=== PATIENT | female | born 1960 | race Caucasian/White ===

== ENCOUNTER → 2017-08-30 | Outpatient (CLI) | payer OTHER ==
[~2017-08-30] MED LIST: AMBI12.52 PO; BACIDCA OR; CIPR500T89 PO; FLAG500T PO; PENT500C4 PO; PERCOCET OR; PRED10TA2 PO; PRED20TA PO; PRED50TA2 PO; PRIL20CA PO; [UNRECOGNIZED DRUG - CODE] PR
[2017-08-30 14:53] LABS: MEAN CORPUSCULAR HEMOGLOBIN 28.5 pg (27.0-33.0); MEAN CORPUSCULAR HGB CONC 31.9 g/dl (32.0-36.5); MEAN CORPUSCULAR VOLUME 89.3 fl (80.0-96.0); PLATELET COUNT, AUTOMATED 382 10^3/uL (150-450); RED CELL DISTRIBUTION WIDTH 12.7 % (11.5-14.5); WHITE BLOOD COUNT 8.8 10^3/uL (4.0-10.0)
[2017-08-30 15:18] LABS: ALBUMIN 3.6 GM/DL (3.2-5.2); ALKALINE PHOSPHATASE 125 U/L (45-117); ALT/SGPT 24 U/L (12-78); ANION GAP 9 MEQ/L (8-16); AST/SGOT 19 U/L (7-37); BILIRUBIN,TOTAL 0.5 MG/DL (0.2-1.0); BLOOD UREA NITROGEN 15 MG/DL (7-18); CALCIUM LEVEL 8.4 MG/DL (8.5-10.1); CARBON DIOXIDE LEVEL 28 MEQ/L (21-32); CHLORIDE LEVEL 104 MEQ/L (98-107); CHOLESTEROL LEVEL 256 MG/DL (<200); CREATININE FOR GFR 0.64 MG/DL (0.55-1.02); GLOMERULAR FILTRATION RATE > 60.0 (>51); GLUCOSE, FASTING 120 MG/DL (70-105); POTASSIUM SERUM 4.2 MEQ/L (3.5-5.1); SODIUM LEVEL 141 MEQ/L (136-145); TOTAL PROTEIN 7.2 GM/DL (6.4-8.2); TRIGLYCERIDES LEVEL 126 MG/DL (<150)
== END ==
LOC: M WUC 12:07
PROVIDERS: ATTEND Student in an Organized Health Care Education/Training Program
DX: R53.83 Other fatigue (principal); Z11.59 Encounter for screening for other viral diseases

== ENCOUNTER → 2018-08-22 | Outpatient (REF) | payer OTHER ==
[2018-08-22 16:48] LABS: ESTIMATED AVERAGE GLUCOSE 148 MG/DL (60-110); HEMOGLOBIN A1c 6.8 %
[2018-08-22 17:34] LABS: CHOLESTEROL LEVEL 198 MG/DL (<200); CHOLESTEROL RISK RATIO 3.735 (<5); HDL CHOLESTEROL 53 MG/DL (>40); LDL CHOLESTEROL 113 MG/DL (<100); NON-HDL-C 145 MG/DL; TRIGLYCERIDES LEVEL 158 MG/DL (<150)
[2018-08-22 18:58] LABS: MALB URINE SIEMENS 14.4 MG/L; MAU/CREAT RATIO 8.5 MCG/MG (0.0-30.0)
== END ==
LOC: M SFHCPLAZ 11:03 → M SFHCADAM 11:08
DX: E11.9 Type 2 diabetes mellitus without complications (principal); E78.5 Hyperlipidemia, unspecified
CPT/HCPCS: 83036

== ENCOUNTER → 2018-08-22 | Outpatient (CLI) | payer OTHER | LOC: M ADAMS 11:03 | DX: Z13.828 Encounter for screening for other musculoskeletal disorder (principal); M51.36 Other intervertebral disc degeneration, lumbar region; M51.37 Other intervertebral disc degeneration, lumbosacral region; M25.78 Osteophyte, vertebrae | CPT/HCPCS: 72070 ==

== ENCOUNTER → 2018-08-24 | Outpatient (REF) | payer OTHER ==
[2018-08-24 13:20] LABS: ANION GAP 10 MEQ/L (8-16); BLOOD UREA NITROGEN 12 MG/DL (7-18); CALCIUM LEVEL 8.6 MG/DL (8.5-10.1); CARBON DIOXIDE LEVEL 25 MEQ/L (21-32); CHLORIDE LEVEL 109 MEQ/L (98-107); CREATININE FOR GFR 0.61 MG/DL (0.55-1.30); GLOMERULAR FILTRATION RATE > 60.0 (>51); GLUCOSE, FASTING 87 MG/DL (70-100); POTASSIUM SERUM 3.8 MEQ/L (3.5-5.1); SODIUM LEVEL 144 MEQ/L (136-145)
== END ==
LOC: M SFHCPLAZ 10:11
DX: E11.9 Type 2 diabetes mellitus without complications (principal)
CPT/HCPCS: 80048

== ENCOUNTER → 2018-08-29 | Outpatient (CLI) | payer OTHER ==
--- NOTE | 2018-08-29 17:42 | REPMRS ---
Patient History The patient states she has not had a clinical breast exam in over a year. No known family history of cancer. Digital Woman Screen Mammo: August 29, 2018 - Exam #: [id number] Bilateral CC and MLO view(s) were taken. Technologist: Dana Currie, Technologist Prior study comparison: June 23, 2016, digital woman screen mammo performed at [facility]. July 11, 2012, digital woman screen mammo performed at [facility]. April 08, 2010, bilateral screening mammogram, performed at [facility] FINDINGS: There are scattered fibroglandular densities. There has been no change in the appearance of the mammogram from the prior studies. There is a mild amount of scattered fibroglandular density which is fairly symmetric. There is no interval development of dominant mass, architectural distortion, or clustered microcalcification suggestive of malignancy. 3-D tomosynthesis shows no additional findings. Assessment: BI-RADS/ACR category 1 mammogram. Negative. Recommendation Routine screening mammogram of both breasts in 1 year (for women over age 40). This patient's Lifetime Breast Cancer RIsk is estimated at 8.0 %. This mammogram was interpreted with the aid of an FDA-approved computer-aided dectection system. Electronically Signed By: Anthony Smalls MD 08/29/18 6002
== END ==
LOC: M WHC 14:01
PROVIDERS: ATTEND Student in an Organized Health Care Education/Training Program
DX: Z12.31 Encounter for screening mammogram for malignant neoplasm of breast (principal)

== ENCOUNTER → 2019-09-11 | Outpatient (CLI) | payer OTHER ==
[~2019-09-11] MED LIST changes: +OXYC1TAB23 OR; -PERCOCET OR
[2019-09-11 14:00] LABS: CHOLESTEROL RISK RATIO 4.06 (<5)
[2019-09-11 14:55] LABS: HEMOGLOBIN A1c 6.7 %
== END ==
LOC: M PLALAB 10:08
PROVIDERS: ATTEND Student in an Organized Health Care Education/Training Program
DX: E11.9 Type 2 diabetes mellitus without complications (principal); E78.5 Hyperlipidemia, unspecified

== ENCOUNTER → 2020-07-26 | Outpatient (REF) | payer MEDICAID, OTHER ==
[2020-07-26 14:33] LABS: APPEARANCE, URINE CLEAR (CLEAR); BACTERIA, URINE AUTO 1+ (NEGATIVE); BILIRUBIN, URINE AUTO NEGATIVE (NEGATIVE); BLOOD, URINE BLOOD 1+ (NEGATIVE); COLOR, URINE YELLOW (YELLOW); GLUCOSE, URINE (UA) AUTO NEGATIVE (NEGATIVE); KETONE, URINE AUTO NEGATIVE (NEGATIVE); LEUKOCYTE ESTERASE, URINE AUTO NEGATIVE (NEGATIVE); MUCUS, URINE SMALL (NEGATIVE); NITRITE, URINE AUTO NEGATIVE (NEGATIVE); PROTEIN, URINE AUTO NEGATIVE (NEGATIVE); RBC, URINE AUTO 3 /HPF (0-3); SPECIFIC GRAVITY URINE AUTO 1.011 (1.002-1.035); SQUAMOUS EPITHELIAL CELL UR AU 1 /HPF (0-6); UROBILINOGEN, URINE AUTO 0.2 mg/dL (0.0-2.0); WBC, URINE AUTO 0 /HPF (0-3)
== END ==
LOC: M SFHCPLAZ 13:04
PROVIDERS: ATTEND Student in an Organized Health Care Education/Training Program
DX: J06.9 Acute upper respiratory infection, unspecified (principal); R35.0 Frequency of micturition

== ENCOUNTER → 2020-07-31 | Outpatient (REF) | payer MEDICAID, OTHER ==
[2020-07-31 13:49] LABS: APPEARANCE, URINE HAZY (CLEAR); BACTERIA, URINE AUTO NEGATIVE (NEGATIVE); BILIRUBIN, URINE AUTO NEGATIVE (NEGATIVE); BLOOD, URINE BLOOD NEGATIVE (NEGATIVE); COLOR, URINE YELLOW (YELLOW); GLUCOSE, URINE (UA) AUTO NEGATIVE (NEGATIVE); KETONE, URINE AUTO NEGATIVE (NEGATIVE); LEUKOCYTE ESTERASE, URINE AUTO NEGATIVE (NEGATIVE); MUCUS, URINE SMALL (NEGATIVE); NITRITE, URINE AUTO NEGATIVE (NEGATIVE); PROTEIN, URINE AUTO NEGATIVE (NEGATIVE); RBC, URINE AUTO 3 /HPF (0-3); SPECIFIC GRAVITY URINE AUTO 1.025 (1.002-1.035); SQUAMOUS EPITHELIAL CELL UR AU 3 /HPF (0-6); UROBILINOGEN, URINE AUTO 0.2 mg/dL (0.0-2.0); WBC, URINE AUTO 1 /HPF (0-3)
== END ==
LOC: M SFHCPLAZ 13:24
PROVIDERS: ATTEND Student in an Organized Health Care Education/Training Program
DX: R31.9 Hematuria, unspecified (principal)

== ENCOUNTER → 2020-08-01 | Outpatient (REF) | payer OTHER, MEDICAID | LOC: M SFHCWAGY 17:19 | PROVIDERS: ATTEND Nurse Practitioner Women's Health | DX: Z12.4 Encounter for screening for malignant neoplasm of cervix (principal) ==

== ENCOUNTER → 2020-08-13 | Outpatient (CLI) | payer MEDICAID ==
--- NOTE | 2020-08-13 16:53 | REPMRS ---
Patient History The patient states she has not had a clinical breast exam in over a year. Patient is postmenopausal. No known family history of cancer. No Hormone Replacement Therapy Digital Woman Screen Mammo: August 13, 2020 - Exam #: [id number] Bilateral CC and MLO view(s) were taken. Technologist: Sweetie Faustin, Technologist Prior study comparison: August 29, 2018, bilateral digital woman screen mammo performed at [facility]. June 23, 2016, digital woman screen mammo performed at [facility]. July 11, 2012, digital woman screen mammo performed at [facility]. FINDINGS: There are scattered fibroglandular densities. The Volpara volumetric breast density category is:B. There has been no change in the appearance of the mammogram from the prior studies. There is a mild amount of scattered fibroglandular density which is fairly symmetric. There is no interval development of dominant mass, architectural distortion, or grouped microcalcification suggestive of malignancy. 3-D tomosynthesis shows no additional findings. Assessment: BI-RADS/ACR category 1 mammogram. Negative Mammogram. Recommendation Routine screening mammogram of both breasts in 1 year (for women over age 40). This patient's [facility] Lifetime Breast Cancer Risk is estimated at 7.5 %. This mammogram was interpreted with the aid of an FDA-approved computer-aided dectection system. Electronically Signed By: Anthony Smalls MD 08/13/20 4792
--- NOTE | 2020-08-15 06:56 | REP ---
INDICATION: N93.9 AUB/N95.0 PMB COMPARISON: None. TECHNIQUE: Transabdominal pelvic ultrasound followed by transvaginal examination for better evaluation of the endometrium and adnexa with color Doppler evaluation of the ovaries. FINDINGS: Bladder is unremarkable and measures 9.9 x 10.3 x 5.2 cm. Heterogeneous anteverted uterus measures 9.0 x 4.6 x 5.3 cm. The endometrial complex is thickened to 22 mm without discrete focal lesion identified. Bilateral ovaries are normal in appearance and vascularity without evidence for torsion. Right ovary measures 1.7 x 0.9 x 1.7 cm; left ovary measures 1.7 x 0.7 x 1.0 cm. No pelvic free fluid or adnexal mass lesion. IMPRESSION: Endometrial hyperplasia without focal discrete lesion identified. <Electronically signed by Tariq Mccurdy > 08/15/20 0653
== END ==
LOC: M WHC 14:26
PROVIDERS: ATTEND Nurse Practitioner Women's Health
DX: Z12.31 Encounter for screening mammogram for malignant neoplasm of breast (principal); N85.00 Endometrial hyperplasia, unspecified; N93.9 Abnormal uterine and vaginal bleeding, unspecified; N95.0 Postmenopausal bleeding

== ENCOUNTER → 2020-08-19 | Outpatient (REF) | payer OTHER, MEDICAID | LOC: M SFHCWAGY 13:17 | PROVIDERS: ATTEND Nurse Practitioner Women's Health | DX: N95.0 Postmenopausal bleeding (principal) ==

== ENCOUNTER → 2020-08-30 | Outpatient (CLI) | payer OTHER, MEDICAID ==
[2020-08-30 13:07] LABS: AMORPHOUS SEDIMENT SMALL (NEGATIVE); APPEARANCE, URINE CLOUDY (CLEAR); BACTERIA, URINE AUTO NEGATIVE (NEGATIVE); BILIRUBIN, URINE AUTO NEGATIVE (NEGATIVE); BLOOD, URINE BLOOD NEGATIVE (NEGATIVE); COLOR, URINE YELLOW (YELLOW); GLUCOSE, URINE (UA) AUTO NEGATIVE (NEGATIVE); KETONE, URINE AUTO NEGATIVE (NEGATIVE); LEUKOCYTE ESTERASE, URINE AUTO NEGATIVE (NEGATIVE); NITRITE, URINE AUTO NEGATIVE (NEGATIVE); PROTEIN, URINE AUTO NEGATIVE (NEGATIVE); RBC, URINE AUTO 3 /HPF (0-3); SPECIFIC GRAVITY URINE AUTO 1.015 (1.002-1.035); SQUAMOUS EPITHELIAL CELL UR AU 1 /HPF (0-6); UROBILINOGEN, URINE AUTO 0.2 mg/dL (0.0-2.0); WBC, URINE AUTO 2 /HPF (0-3)
[2020-08-30 13:42] LABS: HEMOGLOBIN A1c 6.6 %
== END ==
LOC: M PLALAB 11:07
PROVIDERS: ATTEND Student in an Organized Health Care Education/Training Program
DX: R35.0 Frequency of micturition (principal)

== ENCOUNTER → 2020-09-10 | Outpatient (REF) | payer MEDICAID, OTHER ==
[2020-09-10 16:24] LABS: ALBUMIN 3.6 GM/DL (3.2-5.2); ALT/SGPT 25 U/L (12-78); BILIRUBIN,TOTAL 0.5 MG/DL (0.2-1.0); BLOOD UREA NITROGEN 12 MG/DL (7-18); CARBON DIOXIDE LEVEL 32 MEQ/L (21-32); CHLORIDE LEVEL 103 MEQ/L (98-107); CHOLESTEROL LEVEL 204 MG/DL (<200); CHOLESTEROL RISK RATIO 3.238 (<5); CREATININE FOR GFR 0.57 MG/DL (0.55-1.30); CREATININE, URINE 60.4 MG/DL; GLOMERULAR FILTRATION RATE > 60.0 (>45); GLUCOSE, FASTING 95 MG/DL (70-100); HDL CHOLESTEROL 63 MG/DL (>40); LDL CHOLESTEROL 115 MG/DL (<100); MALB URINE SIEMENS 40.5 MG/L; NON-HDL-C 141 MG/DL; POTASSIUM SERUM 4.4 MEQ/L (3.5-5.1); SODIUM LEVEL 140 MEQ/L (136-145); TOTAL PROTEIN 7.2 GM/DL (6.4-8.2); TRIGLYCERIDES LEVEL 131 MG/DL (<150)
== END ==
LOC: M SFHCPLAZ 13:25
PROVIDERS: ATTEND Family Medicine
DX: M89.8X1 Other specified disorders of bone, shoulder (principal); I10 Essential (primary) hypertension

== ENCOUNTER → 2020-09-11 | Outpatient (CLI) | payer MEDICAID, OTHER ==
--- NOTE | 2020-09-11 10:52 | REPPI ---
INDICATION: PAIN OF LEFT SCAPULA COMPARISON: None. TECHNIQUE: AP and lateral views of the scapula FINDINGS: Mild degenerative changes at the acromioclavicular joint include cortical irregularity and subtle spurring. Blunting to the calcified glenoid rim is also appreciated. The subacromial space appears minimally decreased. The scapula is essentially normal/age-appropriate. IMPRESSION: Mild age-related degenerative changes to the shoulder.. Scapula appears relatively intact and normal. <Electronically signed by Tariq Mccurdy > 09/11/20 1047
== END ==
LOC: M PLAIMG 10:27
PROVIDERS: ATTEND Student in an Organized Health Care Education/Training Program
DX: M89.8X1 Other specified disorders of bone, shoulder (principal)

== ENCOUNTER → 2020-10-09 | Outpatient (CLI) | payer OTHER, MEDICAID ==
[~2020-10-09] MED LIST changes: +ATOR40TA75; +LOSA25TA14; +SERT-138
== END ==
LOC: M LABSMTC 10:59
PROVIDERS: ATTEND Anesthesiology
DX: Z01.812 Encounter for preprocedural laboratory examination (principal); Z20.822 Contact with and (suspected) exposure to COVID-19

== ENCOUNTER 2020-10-14 06:06 | Day surgery (SDC) | payer MEDICAID, OTHER ==
[~2020-10-14] VITALS: Ht 165.1 cm; Wt 103.0 kg
--- OUTSIDE RECORDS SUMMARY | 2020-10-14 06:10 | CCD ---
Author Author [facility] Organization [facility] Address Unknown Phone Unavailable Care Team Providers Care Dry Cleaning Manager Name Role Phone Aaron Saucedo Unavailable PROBLEMS Type Condition ICD9-CM Code LNA73-MO Code Onset Dates Condition S tatus SNOMED Code Notes Problem Obesity (BMI 35.0-39.9 without comorbidity) E66.9 Active 186693299 Problem Depressive disorder, not elsewhere classified F32.9 Active 36725490 Problem Allergic rhinitis, unspecified allergic rhinitis type J30.9 Active 74112213 Problem Hyperlipidemia, unspecified hyperlipidemia type E7 8.5 Active 12973982 Problem Lumbago with sciatica, left side M54.42 Active 642337577 Problem Chest wall tenderness R07.89 Active 739185030 Problem Hypertension, unspecified type I10 Active 3 2839049 Problem Type 2 diabetes mellitus wit hout complication, without long-term current use of insulin E11.9 Active 208012580 Problem Endometrial thickening on ultrasound R93.89 Act harriet 526284357 Problem Insomnia, unspecified type G47.00 Active 84840 2000 Problem Increased urinary frequency R35.0 Active 1621 82159 Problem Upper respiratory tract infection, unspecified type J06.9 Active 57419198 Problem Abnormal uterine bleeding (AUB) N93.9 Active 61949663054288 Problem PMB (postmenopausal bleeding) N95.0 Active 76 845100 ALLERGIES Allergen (clinical drug ingredient) Drug/Non Drug Allergy do cumented on EMR Reaction Allergy Type Onset Date Status zolpidem Ambien([facility] Code:[address]-97) Confusion Drug Allergy Active ENCOUNTERS from 1960 to 2020-10-02 Encounter Location Date Provider Diagnosis [facility] [address] [place] [address] Sep, Aaron Saucedo Postmenopausal bleed ing N95.0 IMMUNIZATIONS No Information SOCIAL HISTORY Tobacco Use: Social History Observation Description Date Details (start date - stop date) Never Smoker Sex Assigned At : Social History Observation Description Sex Assigned At Unknown Audit Question Answer Notes Total Score: 0 Interpretation: Alcohol Education Language: Question Answer Notes Languages spoken: Palauan Denominational: Question Answer Notes Denominational No sabianism beliefs that would impact health care. Sexual Hx: Question Answer Notes Had sex in the last 12 months (vaginal, oral, or anal)? No Have you ever had an STD? No Drug and Alcohol Question Answer Notes Total Score: 0 Interpretation: No problems reported Alcohol Screening: Question Answer Notes Did you have a drink containing alcohol in the past year? No Points 0 Interpretation Negative BMI Care Goal Follow-Up Question Answer Notes Above Normal BMI Follow-Up Dietary needs education, Gi ving encouragement to exercise Tobacco Use: Question Answer Notes Are you a: never smoker never smoker REASON FOR REFERRAL No Information VITAL SIGNS No information MEDICATIONS Medication SIG (Take, Route, Frequency, Duration) Notes Start Da te End Date Status Atrovent HFA 17 MCG/ACT 2 puffs Inhalation four time s daily as needed for 10 day(s) Jul, Not-Taking Vitamin B Complex - 1 tab Orally Daily Active Claritin 10 MG 1 tablet Orally Once a day as needed for 90 day( s) Oct, Active Multivitamins OTC 1 tablet Orally Once a day for 90 day(s) Active Calcium & Magnesium Carbonates 520-400 MG 1 tab Orally Daily for 90 day(s) Active Metformin HCl 1000 MG 1 tablet with a meal Orally bid for 90 day (s) Jul, Not-Taking Zoloft 100 MG 1 tablet Orally Once a day for 90 days Active Bactrim DS 800-160 MG 1 tablet Orally Twice a day for 3 days Jul, Not-Taking Losartan Potassium 25 MG 1 tablet Orally Once a day for 30 day(s ) Aug, Active Saline Nasal [place] 0.65 % 2 sprays in each nostril as needed Nasally every 4 hours as needed for 10 day(s) Jul, Ac tive Atorvastatin Calcium 40 MG 1 tablet Orally Once a day for 90 day (s) Oct, Active PROCEDURES No Information RESULTS No Results REASON FOR VISIT SURGICAL CONSULT MEDICAL (GENERAL) HISTORY Type Description Date Medical History depression, Treated with zoloft W2W, Medical History Lipid panal performed 11/2014 - ASCVD-10 1.4%. 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 Medical History Other obesity due to excess calories Medical History Lumbago with sciatica, left side Medical History Insomnia, unspecified type Medical History Obesity (BMI 35.0-39.9 without comorbidi ty) Medical History Hyperlipidemia, unspecified hyperlipidem ia type Medical History Type 2 diabetes mellitus wit hout complication, without long-term current use of insulin Surgical History R inguinal hernia 1978 Surgical History mole removal x 2 2010 Surgical History colonoscopy 1994 & 08/04/13 Hospitalization History [facility] 2012 Hospitalization History 1982 Hospitalization History 1983 Goals Section No Information Health Concerns No Information MEDICAL EQUIPMENT No Information MENTAL STATUS No Information FUNCTIONAL STATUS No Information ASSESSMENTS Encounter Date Diagnosis Assessment Notes Treatment Notes Treatm ent Clinical Notes Sep, Postmenopausal bleeding (ICD-10 - N95.0) PLAN OF TREATMENT Medication Medication Name Sig Start Date Stop Date Losartan Potassium 25 MG 1 tablet Orally Once a day for 30 day(s ) Aug, Next Appt Details Provider Name:Aaron Saucedo, 2020-10-14 07:30:00 AM, [address] [place] [address], [phone], Provider Name:Aarno Saucedo, 2020-10-30 11:40:00 AM, [address] [place] [address], [phone], Provider Name:Cassandra Rascon 2020-11-12 01 :30:00 PM, [address] [place] [address], [id number], Insurance Providers Payer Name Payer Address Payer Phone Insured Name Patient Relati onship to Insured Coverage Start Date Coverage End Date MEDICAID [employer] [address] [facility] [place] [address] KALEIGH CAVAZOS self
--- OUTSIDE RECORDS SUMMARY | 2020-10-14 06:10 | CCD ---
Author Author [facility] Organization [facility] Address Unknown Phone Unavailable Care Team Providers Care Flight Engineer Instructor Name Role Phone Aaron Saucedo Unavailable PROBLEMS Type Condition ICD9-CM Code ZKM79-[id number] Code Onset Dates Condition S tatus SNOMED Code Notes Problem Obesity (BMI 35.0-39.9 without comorbidity) E66.9 Active 794602717 Problem Depressive disorder, not elsewhere classified F32.9 Active 78918783 Problem Allergic rhinitis, unspecified allergic rhinitis type J30.9 Active 54435963 Problem Hyperlipidemia, unspecified hyperlipidemia type E7 8.5 Active 47026574 Problem Lumbago with sciatica, left side M54.42 Active 627399450 Problem Chest wall tenderness R07.89 Active 489501676 Problem Hypertension, unspecified type I10 Active 3 7399741 Problem Type 2 diabetes mellitus wit hout complication, without long-term current use of insulin E11.9 Active 271853632 Problem Endometrial thickening on ultrasound R93.89 Act harriet 330903258 Problem Insomnia, unspecified type G47.00 Active 72954 2000 Problem Increased urinary frequency R35.0 Active 1621 95483 Problem Upper respiratory tract infection, unspecified type J06.9 Active 86759841 Problem Abnormal uterine bleeding (AUB) N93.9 Active 94434633311632 Problem PMB (postmenopausal bleeding) N95.0 Active 76 979394 ALLERGIES Allergen (clinical drug ingredient) Drug/Non Drug Allergy do cumented on EMR Reaction Allergy Type Onset Date Status zolpidem Ambien([facility] Code:[address]-74) Confusion Drug Allergy Active ENCOUNTERS from 1960 to 2020-09-25 Encounter Location Date Provider Diagnosis [facility] [address] [place] [address] Sep, Aaron Saucedo IMMUNIZATIONS No Information SOCIAL HISTORY Tobacco Use: Social History Observation Description Date Details (start date - stop date) Never Smoker Sex Assigned At : Social History Observation Description Sex Assigned At Unknown Audit Question Answer Notes Total Score: 0 Interpretation: Alcohol Education Language: Question Answer Notes Languages spoken: Slovenian Spiritism: Question Answer Notes Spiritism No tenriism beliefs that would impact health care. Sexual [...] 30 day(s ) Aug, Active Saline Nasal [place] 0.65 % 2 sprays in each nostril as needed Nasally every 4 hours as needed for 10 day(s) Jul, Ac tive Atorvastatin Calcium 40 MG 1 tablet Orally Once a day for 90 day (s) Oct, Active PROCEDURES No Information RESULTS No Results REASON FOR VISIT AUTHORIZATION MEDICAL (GENERAL) HISTORY Type Description Date Medical History depression, Treated with zoloft W2W, Medical History Lipid panal performed 11/2014 - ASCVD-10 1.4%. 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 Medical History Other obesity due to excess calories Medical History Lumbago with sciatica, left side Medical History Insomnia, unspecified type Medical History Obesity (BMI 35.0-39.9 without comorbidi ty) Medical History Hyperlipidemia, unspecified hyperlipidem ia type Medical History Type 2 diabetes mellitus wit hout complication, without long-term current use of insulin Surgical History R inguinal hernia 1979 Surgical History mole removal x 2 2010 Surgical History colonoscopy 1994 & 08/04/13 Hospitalization History [facility] 2012 Hospitalization History 1981 Hospitalization History 1983 Goals Section No Information Health Concerns No Information MEDICAL EQUIPMENT No Information MENTAL STATUS No Information FUNCTIONAL STATUS No Information ASSESSMENTS No Information PLAN OF TREATMENT Medication Medication Name Sig Start Date Stop Date Losartan Potassium 25 MG 1 tablet Orally Once a day for 30 day(s ) Aug, Next Appt Details Provider Name:Aaron Saucedo, 2020-10-14 07:30:00 AM, [address] [place] [address], [phone], Provider Name:Aaron Saucedo, 2020-10-29 11:40:00 AM, [address] [place] [address], [phone], Provider Name:Cassandra Rascon, 2020-11-12 01 :30:00 PM, [address] [place] [address], [id number], Insurance Providers Payer Name Payer Address Payer Phone Insured Name Patient Relati onship to Insured Coverage Start Date Coverage End Date MEDICAID [email or web address] [address] [facility] [address] KALEIGH CAVAZOS self
--- OUTSIDE RECORDS SUMMARY | 2020-10-14 06:10 | CCD ---
Author Author [facility] Organization [facility] Address Unknown Phone Unavailable Care Team Providers Care Athletics Teacher Name Role Phone Aaron Saucedo Unavailable PROBLEMS Type Condition ICD9-CM Code [id number] Code Onset Dates Condition S tatus SNOMED Code Notes Problem Obesity (BMI 35.0-39.9 without comorbidity) E66.9 Active 680351495 Problem Depressive disorder, not elsewhere classified F32.9 Active 97241794 Problem Allergic rhinitis, unspecified allergic rhinitis type J30.9 Active 78785907 Problem Hyperlipidemia, unspecified hyperlipidemia type E7 8.5 Active 92074303 Problem Lumbago with sciatica, left side M54.42 Active 215507470 Problem Chest wall tenderness R07.89 Active 957882751 Problem Hypertension, unspecified type I10 Active 3 2826425 Problem Type 2 diabetes mellitus wit hout complication, without long-term current use of insulin E11.9 Active 681439445 Problem Endometrial thickening on ultrasound R93.89 Act harriet 881832845 Problem Insomnia, unspecified type G47.00 Active 84793 2000 Problem Increased urinary frequency R35.0 Active 1621 94333 Problem Upper respiratory tract infection, unspecified type J06.9 Active 30851507 Problem Abnormal uterine bleeding (AUB) N93.9 Active 97772929899018 Problem PMB (postmenopausal bleeding) N95.0 Active 76 540906 ALLERGIES Allergen (clinical drug ingredient) Drug/Non Drug Allergy do cumented on EMR Reaction Allergy Type Onset Date Status zolpidem Ambien([facility] Code:[address]-44) Confusion Drug Allergy Active ENCOUNTERS from 1960 to 2020-09-12 Encounter Location Date Provider Diagnosis [facility] [address] [place] [address] Aug, Aaron Saucedo IMMUNIZATIONS No Information SOCIAL HISTORY Tobacco Use: Social History Observation Description Date Details (start date - stop date) Never Smoker Sex Assigned At : Social History Observation Description Sex Assigned At Unknown Audit Question Answer Notes Total Score: 0 Interpretation: Alcohol Education Language: Question Answer Notes Languages spoken: Turkish Jain: Question Answer Notes Jain No jain beliefs that would impact health care. Sexual [...] 30 day(s ) Aug, Active Saline Nasal [place] 0.65 % 2 sprays in each nostril as needed Nasally every 4 hours as needed for 10 day(s) Jul, Ac tive Atorvastatin Calcium 40 MG 1 tablet Orally Once a day for 90 day (s) Oct, Active PROCEDURES No Information RESULTS No Results REASON FOR VISIT No Information MEDICAL (GENERAL) HISTORY Type Description Date Medical History depression, Treated with zoloft W2W, Medical History Lipid panal performed 11/2014 - ASCVD-10 1.4%. Medical History [facility] systemic steroid user Medical History Other obesity [...] Aug, Next Appt Details Provider Name:Aaron Saucedo, 2020-09-24 12:45:00 AM, [address] [place], [address], Insurance Providers Payer Name Payer Address Payer Phone Insured Name Patient Relati onship to Insured Coverage Start Date Coverage End Date MEDICAID [employer] [address] [facility] [address] KALEIGH CAVAZOS self
--- OUTSIDE RECORDS SUMMARY | 2020-10-14 06:10 | CCD ---
Author Author [facility] Organization [facility] Address Unknown Phone Unavailable Care Team Providers Care Sales Officer Name Role Phone Hilda Perez Unavailable PROBLEMS Type Condition ICD9-CM Code FBT22-NL Code Onset Dates Condition S tatus SNOMED Code Notes Problem Obesity (BMI 35.0-39.9 without comorbidity) E66.9 Active 068545916 Problem Depressive disorder, not elsewhere classified F32.9 Active 08115353 Problem Allergic rhinitis, unspecified allergic rhinitis type J30.9 Active 34117489 Problem Hyperlipidemia, unspecified hyperlipidemia type E7 8.5 Active 78734575 Problem Lumbago with sciatica, left side M54.42 Active 080841914 Problem Chest wall tenderness R07.89 Active 270227210 Problem Hypertension, unspecified type I10 Active 3 0262792 Problem Type 2 diabetes mellitus wit hout complication, without long-term current use of insulin E11.9 Active 480528069 Problem Endometrial thickening on ultrasound R93.89 Act harriet 066260277 Problem Insomnia, unspecified type G47.00 Active 97454 2000 Problem Increased urinary frequency R35.0 Active 1621 91112 Problem Upper respiratory tract infection, unspecified type J06.9 Active 87344217 Problem Abnormal uterine bleeding (AUB) N93.9 Active 45768956460529 Problem PMB (postmenopausal bleeding) N95.0 Active 76 810722 ALLERGIES Allergen (clinical drug ingredient) Drug/Non Drug Allergy do cumented on EMR Reaction Allergy Type Onset Date Status zolpidem Ambien([facility] Code:[address]-79) Confusion Drug Allergy Active ENCOUNTERS from 1960 to 2020-10-09 Encounter Location Date Provider Diagnosis [facility] [address] [place] [address] Aug, Hilda Leec IMMUNIZATIONS No Information SOCIAL HISTORY Tobacco Use: Social History Observation Description Date Details (start date - stop date) Never Smoker Sex Assigned At : Social History Observation Description Sex Assigned At Unknown Audit Question Answer Notes Total Score: 0 Interpretation: Alcohol Education Language: Question Answer Notes Languages spoken: Kazakh Yazidism: Question Answer Notes Yazidism No mandaeism beliefs that would impact health care. Sexual [...] 30 day(s ) Aug, Active Saline Nasal [place] 0.65 % 2 sprays in each nostril as needed Nasally every 4 hours as needed for 10 day(s) Jul, Ac tive Atorvastatin Calcium 40 MG 1 tablet Orally Once a day for 90 day (s) Oct, Active PROCEDURES No Information RESULTS No Results REASON FOR VISIT pmb, needs surgical consultz MEDICAL (GENERAL) HISTORY Type Description Date Medical History depression, Treated with zoloft W2W, Medical History Lipid panal performed 11/2014 - ASCVD-10 1.4%. Medical History [facility] systemic steroid user Medical History Other obesity [...] Details Provider Name:Aaron Saucedo, 2020-10-14 07:30:00 AM, [address] [place] [address], [phone], Provider Name:Aaron Saucedo, 2020-10-30 11:40:00 AM, [address] [place] [address], [phone], Provider Name:Cassandra Rascon 2020-11-12 01 :30:00 PM, [address] [place] [address], [place], [address], Insurance Providers Payer Name Payer Address Payer Phone Insured Name Patient Relati onship to Insured Coverage Start Date Coverage End Date MEDICAID [employer] [address] [facility] [address] KALEIGH CAVAZOS self
--- OUTSIDE RECORDS SUMMARY | 2020-10-14 06:10 | CCD ---
Author Author [facility] Organization [facility] Address Unknown Phone Unavailable Care Team Providers Care Scalehouse Attendant Name Role Phone Cassandra Rascon Unavailable PROBLEMS Type Condition ICD9-CM Code RQR25-CX Code Onset Dates Condition S tatus SNOMED Code Notes Problem Obesity (BMI 35.0-39.9 without comorbidity) E66.9 Active 564528349 Problem Depressive disorder, not elsewhere classified F32.9 Active 21298109 Problem Allergic rhinitis, unspecified allergic rhinitis type J30.9 Active 87963617 Problem Hyperlipidemia, unspecified hyperlipidemia type E7 8.5 Active 99558344 Problem Lumbago with sciatica, left side M54.42 Active 024941493 Problem Chest wall tenderness R07.89 Active 088792152 Problem Hypertension, unspecified type I10 Active 3 2298959 Problem Type 2 diabetes mellitus wit hout complication, without long-term current use of insulin E11.9 Active 959632583 Problem Endometrial thickening on ultrasound R93.89 Act harriet 932007526 Problem Insomnia, unspecified type G47.00 Active 40568 2000 Problem Increased urinary frequency R35.0 Active 1621 18932 Problem Upper respiratory tract infection, unspecified type J06.9 Active 17520232 Problem Abnormal uterine bleeding (AUB) N93.9 Active 16919333229812 Problem PMB (postmenopausal bleeding) N95.0 Active 76 111789 ALLERGIES Allergen (clinical drug ingredient) Drug/Non Drug Allergy do cumented on EMR Reaction Allergy Type Onset Date Status zolpidem Ambien([facility] Code:[address]-11) Confusion Drug Allergy Active ENCOUNTERS from 1960 to 2020-09-16 Encounter Location Date Provider Diagnosis [address] [address] Sep, Cassandra Chen IMMUNIZATIONS No Information SOCIAL HISTORY Tobacco Use: Social History Observation Description Date Details (start date - stop date) Never Smoker Sex Assigned At : Social History Observation Description Sex Assigned At Unknown Audit Question Answer Notes Total Score: 0 Interpretation: Alcohol Education Language: Question Answer Notes Languages spoken: Amharic Spiritism: Question Answer Notes Spiritism No yarsanism beliefs that would impact health care. Sexual [...] 30 day(s ) Aug, Active Saline Nasal [place] 0.65 % 2 sprays in each nostril [...] performed 11/2014 - ASCVD-10 1.4%. 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
--- OUTSIDE RECORDS SUMMARY | 2020-10-14 06:11 | CCD ---
Author Author [facility] Organization [facility] Address Unknown Phone Unavailable Support Name Relationship Address Phone NI HERNÁNDEZ Next Of Kin [address] [place] [address] [address] [place] [address] RE Next Of Kin Unknown Unavailable RETIRED Next Of Kin [address] [place] [address] JEREMY TORRES Next Of Kin [address] [place] [address] UE Next Of Kin Unknown Unavailable DIRK MARRERO JES CO Next Of Kin [address] [place] [address] DIRK ALEMAN Next Of Kin [address] [place] [address] [address] [place] [address] Monalisa TORRES Next Of Kin [address] [place] [address] 8 4 [place] [address] NI [place] [address] Unavailable JEREMY Torres ECON [address] [place] [address] 8 4 [place] [address] Unavailable Re-disclosure Warning The records that you are about to access may contain information from federally-assisted alcohol or drug abuse programs. If such information is present, then the following federally mandated warning applies: This information has been disclosed to you from records protected by federal confidentiality rules (42 CFR part 2). The federal rules prohibit you from making any further disclosure of this information unless further disclosure is expressly permitted by the written consent of the person to whom it pertains or as otherwise permitted by 42 CFR part 2. A general authorization for the release of medical or other information is NOT sufficient for this purpose. The Federal rules restrict any use of the information to criminally investigate or prosecute any alcohol or drug abuse patient.The records that you are about to access may contain highly sensitive health information, the redisclosure of which is protected by Article 27-F of the [place] State Public Health law. If you continue you may have access to information: Regarding HIV / AIDS; Provided by facilities licensed or operated by the [facility] Office of Mental Health; or Provided by the [facility] Office for People With Developmental Disabilities. If such information is present, then the following [facility] mandated warning applies: This information has been disclosed to you from confidential records which are protected by state law. State law prohibits you from making any further disclosure of this information without the specific written consent of the person to whom it pertains, or as otherwise permitted by law. Any unauthorized further disclosure in violation of state law may result in a fine or half-way sentence or both. A general authorization for the release of medical or other information is NOT sufficient authorization for further disc losure. Family History Family Member Name Family Member Gender Family Member Status Date o f Status Description Data Source(s) Unknown Unknown Problem MEDENT ([facility], ) Encounters Encounter Providers Location Date Indications Data Source(s ) Unknown [address] [facility] [id number] 09/25/2020 12:00:00 AM EST eCW1 ([facility]) Office Visit, Est Pt., Level 4 [address] [place] [address] 09/24/2020 12:00:00 AM EST eCW1 ([facility]) Unknown [address] [facility] [id number] 09/14/2020 12:00:00 AM EST eCW1 ([facility]) Unknown [address] [facility] [id number] 09/10/2020 12:00:00 AM EST [facility]CW1 [facility]) Unknown [address] [facility] [address] 09/04/2020 12:00:00 AM EST eCW1 ([facility]) Unknown [address] [facility] [address] 09/02/2020 12:00:00 AM EST eCW1 ([facility]) Unknown [address] [facility] [address] 08/30/2020 12:00:00 AM EST eCW1 ([facility]) Unknown [address] [facility] [id number] 08/26/2020 12:00:00 AM EST eCW1 ([facility]) Unknown [address] [facility] [place] [address] 08/23/2020 12:00:00 AM EST eCW1 ([facility]) ( PROC) [facility] Procedure [address] [place] [address] 08/19/2020 12:00:00 AM EST eCW1 ([facility]) Unknown [address] [facility] [place] [address] 08/12/2020 12:00:00 AM EST eCW1 ([facility]) Outpatient [address] [facility] [id number] 08/01/2020 12:00:00 AM EST eCW1 ([facility]) Outpatient [address] [facility] [id number] 07/31/2020 12:00:00 AM EST eCW1 ([facility]) Unknown [address] [facility] [id number] 07/29/2020 12:00:00 AM EST eCW1 ([facility]) Unknown [address] [facility] [id number] 07/29/2020 12:00:00 AM EST eCW1 ([facility]) Outpatient [address] [facility] [id number] 07/26/2020 12:00:00 AM EST eCW1 ([facility]) [facility] [address] [place] [address] 08/25/2019 12:00:00 AM EST eCW1 ([facility]) Medications Medication Brand Name Start Date Product Form Dose Route Admi nistrative Instructions Pharmacy Instructions Status Indications Reaction Description Data Source(s) Losartan Potassium 25 MG Oral Tablet Losartan Potassium 25 M G 09/10/2020 12:00:00 AM EST 1.0 {tablet} active Lo sartan Potassium 25 MG eCW1 ([facility]) Losartan Potassium 25 MG Oral Tablet Losartan Potassium 25 M G 09/10/2020 12:00:00 AM EST 1.0 {tablet} active Lo sartan Potassium 25 MG eCW1 ([facility]) Losartan Potassium 25 MG Oral Tablet Losartan Potassium 25 M G 09/10/2020 12:00:00 AM EST 1.0 {tablet} active Lo sartan Potassium 25 MG eCW1 ([facility]) Losartan Potassium 25 MG Oral Tablet Losartan Potassium 25 M G 09/10/2020 12:00:00 AM EST 1.0 {tablet} active Lo sartan Potassium 25 MG eCW1 ([facility]) Losartan Potassium 25 MG Oral Tablet Losartan Potassium 25 M G 09/10/2020 12:00:00 AM EST 1.0 {tablet} active Lo sartan Potassium 25 MG eCW1 ([facility]) Losartan Potassium 25 MG Oral Tablet Losartan Potassium 25 M G 09/10/2020 12:00:00 AM EST 1.0 {tablet} active Lo sartan Potassium 25 MG eCW1 ([facility]) Sodium Chloride 0.111 MEQ/ML Nasal [place] Saline Nasal [place] 0.65 % Saline Nasal [place] 0.65 % 07/31/2020 12:00:00 AM EST activ e Saline Nasal [place] 0.65 % eCW1 ([facility]) 200 ACTUAT Ipratropium [place] 0.017 MG/ ACTUAT Metered Dose Inhaler [Atrovent] Atrovent HFA 17 MCG/ACT Atrovent HFA 17 MCG/ACT 07/31/2020 12:00:00 AM EST 2.0 {puffs} suspended Atrovent HFA 17 MCG/A CT eCW1 ([facility]) Sodium Chloride 0.111 MEQ/ML Nasal [place] Saline Nasal [place] 0.65 % Saline Nasal [place] 0.65 % 07/31/2020 12:00:00 AM EST activ e Saline Nasal [place] 0.65 % eCW1 ([facility]) 200 ACTUAT Ipratropium [place] 0.017 MG/ ACTUAT Metered Dose Inhaler [Atrovent] Atrovent HFA 17 MCG/ACT Atrovent HFA 17 MCG/ACT 07/31/2020 12:00:00 AM EST 2.0 {puffs} suspended Atrovent HFA 17 MCG/A CT eCW1 ([facility]) 200 ACTUAT Ipratropium [place] 0.017 MG/ ACTUAT Metered Dose Inhaler [Atrovent] Atrovent HFA 17 MCG/ACT Atrovent HFA 17 MCG/ACT 07/31/2020 12:00:00 AM EST 2.0 {puffs} suspended Atrovent HFA 17 MCG/A CT eCW1 ([facility]) 200 ACTUAT Ipratropium [place] 0.017 MG/ ACTUAT Metered Dose Inhaler [Atrovent] Atrovent HFA 17 MCG/ACT Atrovent HFA 17 MCG/ACT 07/31/2020 12:00:00 AM EST 2.0 {puffs} active Atrovent HFA 17 MCG/ACT eCW1 ([facility]) Sodium Chloride 0.111 MEQ/ML Nasal [place] Saline Nasal [place] 0.65 % Saline Nasal [place] 0.65 % 07/31/2020 12:00:00 AM EST activ e Saline Nasal [place] 0.65 % eCW1 ([facility]) Sodium Chloride 0.111 MEQ/ML Nasal [place] Saline Nasal [place] 0.65 % Saline Nasal [place] 0.65 % 07/31/2020 12:00:00 AM EST activ e Saline Nasal [place] 0.65 % eCW1 ([facility]) Sodium Chloride 0.111 MEQ/ML Nasal [place] Saline Nasal [place] 0.65 % Saline Nasal [place] 0.65 % 07/31/2020 12:00:00 AM EST activ e Saline Nasal [place] 0.65 % eCW1 ([facility]) Sodium Chloride 0.111 MEQ/ML Nasal [place] Saline Nasal [place] 0.65 % Saline Nasal [place] 0.65 % 07/31/2020 12:00:00 AM EST activ e Saline Nasal [place] 0.65 % eCW1 ([facility]) Sodium Chloride 0.111 MEQ/ML Nasal [place] Saline Nasal [place] 0.65 % Saline Nasal [place] 0.65 % 07/31/2020 12:00:00 AM EST activ e Saline Nasal [place] 0.65 % eCW1 ([facility]) 200 ACTUAT Ipratropium [place] 0.017 MG/ ACTUAT Metered Dose Inhaler [Atrovent] Atrovent HFA 17 MCG/ACT Atrovent HFA 17 MCG/ACT 07/31/2020 12:00:00 AM EST 2.0 {puffs} suspended Atrovent HFA 17 MCG/A CT eCW1 ([facility]) Sodium Chloride 0.111 MEQ/ML Nasal [place] Saline Nasal [place] 0.65 % Saline Nasal [place] 0.65 % 07/31/2020 12:00:00 AM EST activ e Saline Nasal [place] 0.65 % eCW1 ([facility]) Sodium Chloride 0.111 MEQ/ML Nasal [place] Saline Nasal [place] 0.65 % Saline Nasal [place] 0.65 % 07/31/2020 12:00:00 AM EST activ e Saline Nasal [place] 0.65 % eCW1 ([facility]) Sodium Chloride 0.111 MEQ/ML Nasal [place] Saline Nasal [place] 0.65 % Saline Nasal [place] 0.65 % 07/31/2020 12:00:00 AM EST activ e Saline Nasal [place] 0.65 % eCW1 ([facility]) 200 ACTUAT Ipratropium [place] 0.017 MG/ ACTUAT Metered Dose Inhaler [Atrovent] Atrovent HFA 17 MCG/ACT Atrovent HFA 17 MCG/ACT 07/31/2020 12:00:00 AM EST 2.0 {puffs} active Atrovent HFA 17 MCG/ACT eCW1 ([facility]) Sodium Chloride 0.111 MEQ/ML Nasal [place] Saline Nasal [place] 0.65 % Saline Nasal [place] 0.65 % 07/31/2020 12:00:00 AM EST activ e Saline Nasal [place] 0.65 % eCW1 ([facility]) Sodium Chloride 0.111 MEQ/ML Nasal [place] Saline Nasal [place] 0.65 % Saline Nasal [place] 0.65 % 07/31/2020 12:00:00 AM EST activ e Saline Nasal [place] 0.65 % eCW1 ([facility]) 200 ACTUAT Ipratropium [place] 0.017 MG/ ACTUAT Metered Dose Inhaler [Atrovent] Atrovent HFA 17 MCG/ACT Atrovent HFA 17 MCG/ACT 07/31/2020 12:00:00 AM EST 2.0 {puffs} suspended Atrovent HFA 17 MCG/A CT eCW1 ([facility]) 200 ACTUAT Ipratropium [place] 0.017 MG/ ACTUAT Metered Dose Inhaler [Atrovent] Atrovent HFA 17 MCG/ACT Atrovent HFA 17 MCG/ACT 07/31/2020 12:00:00 AM EST 2.0 {puffs} suspended Atrovent HFA 17 MCG/A CT eCW1 ([facility]) 200 ACTUAT Ipratropium [place] 0.017 MG/ ACTUAT Metered Dose Inhaler [Atrovent] Atrovent HFA 17 MCG/ACT Atrovent HFA 17 MCG/ACT 07/31/2020 12:00:00 AM EST 2.0 {puffs} suspended Atrovent HFA 17 MCG/A CT eCW1 ([facility]) 200 ACTUAT Ipratropium [place] 0.017 MG/ ACTUAT Metered Dose Inhaler [Atrovent] Atrovent HFA 17 MCG/ACT Atrovent HFA 17 MCG/ACT 07/31/2020 12:00:00 AM EST 2.0 {puffs} active Atrovent HFA 17 MCG/ACT eCW1 ([facility]) Sodium Chloride 0.111 MEQ/ML Nasal [place] Saline Nasal [place] 0.65 % Saline Nasal [place] 0.65 % 07/31/2020 12:00:00 AM EST activ e Saline Nasal [place] 0.65 % eCW1 ([facility]) 200 ACTUAT Ipratropium [place] 0.017 MG/ ACTUAT Metered Dose Inhaler [Atrovent] Atrovent HFA 17 MCG/ACT Atrovent HFA 17 MCG/ACT 07/31/2020 12:00:00 AM EST 2.0 {puffs} suspended Atrovent HFA 17 MCG/A CT eCW1 ([facility]) 200 ACTUAT Ipratropium [place] 0.017 MG/ ACTUAT Metered Dose Inhaler [Atrovent] Atrovent HFA 17 MCG/ACT Atrovent HFA 17 MCG/ACT 07/31/2020 12:00:00 AM EST 2.0 {puffs} suspended Atrovent HFA 17 MCG/A CT eCW1 ([facility]) 200 ACTUAT Ipratropium [place] 0.017 MG/ ACTUAT Metered Dose Inhaler [Atrovent] Atrovent HFA 17 MCG/ACT Atrovent HFA 17 MCG/ACT 07/31/2020 12:00:00 AM EST 2.0 {puffs} suspended Atrovent HFA 17 MCG/A CT eCW1 ([facility]) 200 ACTUAT Ipratropium [place] 0.017 MG/ ACTUAT Metered Dose Inhaler [Atrovent] Atrovent HFA 17 MCG/ACT Atrovent HFA 17 MCG/ACT 07/31/2020 12:00:00 AM EST 2.0 {puffs} suspended Atrovent HFA 17 MCG/A CT eCW1 ([facility]) Sodium Chloride 0.111 MEQ/ML Nasal [place] Saline Nasal [place] 0.65 % Saline Nasal [place] 0.65 % 07/31/2020 12:00:00 AM EST activ e Saline Nasal [place] 0.65 % eCW1 ([facility]) Sulfamethoxazole 800 MG / Trimethoprim 1 60 MG Oral Tablet [Bactrim] Bactrim DS 800-160 MG Bactrim DS 800-160 MG 07/26/2020 12:00:00 AM EST 1.0 {table t} suspended Bactrim DS 800-160 MG eCW1 ( [facility]) Sulfamethoxazole 800 MG / Trimethoprim 1 60 MG Oral Tablet [Bactrim] Bactrim DS 800-160 MG Bactrim DS 800-160 MG 07/26/2020 12:00:00 AM EST 1.0 {table t} suspended Bactrim DS 800-160 MG eCW1 ( [facility]) Sulfamethoxazole 800 MG / Trimethoprim 1 60 MG Oral Tablet [Bactrim] Bactrim DS 800-160 MG Bactrim DS 800-160 MG 07/26/2020 12:00:00 AM EST 1.0 {table t} suspended Bactrim DS 800-160 MG eCW1 ( [facility]) Sulfamethoxazole 800 MG / Trimethoprim 1 60 MG Oral Tablet [Bactrim] Bactrim DS 800-160 MG Bactrim DS 800-160 MG 07/26/2020 12:00:00 AM EST 1.0 {table t} suspended Bactrim DS 800-160 MG eCW1 ( [facility]) Sulfamethoxazole 800 MG / Trimethoprim 1 60 MG Oral Tablet [Bactrim] Bactrim DS 800-160 MG Bactrim DS 800-160 MG 07/26/2020 12:00:00 AM EST 1.0 {table t} suspended Bactrim DS 800-160 MG eCW1 ( [facility]) Sulfamethoxazole 800 MG / Trimethoprim 1 60 MG Oral Tablet [Bactrim] Bactrim DS 800-160 MG Bactrim DS 800-160 MG 07/26/2020 12:00:00 AM EST 1.0 {table t} suspended Bactrim DS 800-160 MG eCW1 ( [facility]) Sulfamethoxazole 800 MG / Trimethoprim 1 60 MG Oral Tablet [Bactrim] Bactrim DS 800-160 MG Bactrim DS 800-160 MG 07/26/2020 12:00:00 AM EST 1.0 {table t} suspended Bactrim DS 800-160 MG eCW1 ( [facility]) Sulfamethoxazole 800 MG / Trimethoprim 1 60 MG Oral Tablet [Bactrim] Bactrim DS 800-160 MG Bactrim DS 800-160 MG 07/26/2020 12:00:00 AM EST 1.0 {table t} suspended Bactrim DS 800-160 MG eCW1 ( [facility]) Sulfamethoxazole 800 MG / Trimethoprim 1 60 MG Oral Tablet [Bactrim] Bactrim DS 800-160 MG Bactrim DS 800-160 MG 07/26/2020 12:00:00 AM EST 1.0 {table t} suspended Bactrim DS 800-160 MG eCW1 ( [facility]) Sulfamethoxazole 800 MG / Trimethoprim 1 60 MG Oral Tablet [Bactrim] Bactrim DS 800-160 MG Bactrim DS 800-160 MG 07/26/2020 12:00:00 AM EST 1.0 {table t} active Bactrim DS 800-160 MG eCW1 ( [facility]) Sulfamethoxazole 800 MG / Trimethoprim 1 60 MG Oral Tablet [Bactrim] Bactrim DS 800-160 MG Bactrim DS 800-160 MG 07/26/2020 12:00:00 AM EST 1.0 {table t} suspended Bactrim DS 800-160 MG eCW1 ( [facility]) Sulfamethoxazole 800 MG / Trimethoprim 1 60 MG Oral Tablet [Bactrim] Bactrim DS 800-160 MG Bactrim DS 800-160 MG 07/26/2020 12:00:00 AM EST 1.0 {table t} suspended Bactrim DS 800-160 MG eCW1 ( [facility]) Sulfamethoxazole 800 MG / Trimethoprim 1 60 MG Oral Tablet [Bactrim] Bactrim DS 800-160 MG Bactrim DS 800-160 MG 07/26/2020 12:00:00 AM EST 1.0 {table t} active Bactrim DS 800-160 MG eCW1 ( [facility]) Sulfamethoxazole 800 MG / Trimethoprim 1 60 MG Oral Tablet [Bactrim] Bactrim DS 800-160 MG Bactrim DS 800-160 MG 07/26/2020 12:00:00 AM EST 1.0 {table t} suspended Bactrim DS 800-160 MG eCW1 ( [facility]) Sulfamethoxazole 800 MG / Trimethoprim 1 60 MG Oral Tablet [Bactrim] Bactrim DS 800-160 MG Bactrim DS 800-160 MG 07/26/2020 12:00:00 AM EST 1.0 {table t} suspended Bactrim DS 800-160 MG eCW1 ( [facility]) Sulfamethoxazole 800 MG / Trimethoprim 1 60 MG Oral Tablet [Bactrim] Bactrim DS 800-160 MG Bactrim DS 800-160 MG 07/26/2020 12:00:00 AM EST 1.0 {table t} suspended Bactrim DS 800-160 MG eCW1 ( [facility]) Insurance Providers Payer name Policy type / Coverage type Policy ID Covered alliance party ID Covered alliance party's relationship to young Policy Young Plan Information [facility] [id number] SP [id number] [facility] [id number] S [id number] [facility] [id number] SP [id number] ANSI-Not a Secondary Insurance [id number] ANSI-Commercial [id number] ANSI-Not a Secondary Insurance [id number] ANSI-Commercial [id number] ANSI-Commercial [id number] ANSI-Not a Secondary Insurance [id number] ANSI-Not a Secondary Insurance [id number] ANSI-Commercial [id number] ANSI-Commercial [id number] ANSI-Not a Secondary Insurance [id number] ANSI-Not a Secondary Insurance [id number] ANSI-Commercial [id number] ANSI-Commercial [id number] ANSI-Not a Secondary Insurance [id number] ANSI-Commercial [id number] ANSI-Not a Secondary Insurance [id number] [facility] [place] Medicaid Self [employer] BCBS Health Maintenance Organization (HMO) Family Dependent BCBS [place] 302/307 [id number] [id number] [place]BS [place] 302/307 [id number] HU2 [id number] BCBS [place] 304/804 [id number] HU2 [id number] [place] P[place] 302/307 [id number] HU2 [id number] BCBS [place] 302/307 [id number] HU2 [id number] [facility] [id number] [place] [id number] BC[place] 304/804 [id number] HU2 [id number] SELF PAY UNAVAILABLE UNAVAILA BLE BCBS [place] 304/804 [id number] BCBS [place] 304/804 [id number] HMO BLUE [id number] HU [id number] [place] BCBS P [id number] P [id number] [place] BCBS P [id number] S [id number] BCBS OF [place] 306/8 P [id number] S [id number] Problems, Conditions, and Diagnoses Code Display Name Description Problem Type Effective Dates Data Source(s) I10 [id number] Hypertension, unspecified type Problem 09/10 12:00:00 AM EST eCW1 ([facility]) R93.89 [id number] Endometrial thickening on ultrasound Prob silvino 08/19/2020 12:00:00 AM EST eCW1 ([facility]) N95.0 [id number] PMB (postmenopausal bleeding) Problem 2019 12:00:00 AM EST eCW1 ([facility]) N93.9 [id number] Abnormal uterine bleeding (AUB) Problem 08/01/2020 12:00:00 AM EST eCW1 ([facility]) J06.9 [id number] Upper respiratory tract infection, unspec ified type Problem 07/27/2020 12:00:00 AM EST eCW1 ([facility]) R35.0 [id number] Increased urinary frequency Problem 07/27/20 20 12:00:00 AM EST eCW1 ([facility]) R07.89 [id number] Chest wall tenderness Problem 07/27/2020 12: 00:00 AM EST eCW1 ([facility]) Results ID Date Data Source [id number] 10/09/2020 12:00:00 PM EST [facility] Name Value Range Interpretation Code Description Data Eboni rce(s) Supporting Document(s) SARS coronavirus 2 RNA Not Detected [facility] This lab was ordered by [facility] and reported by [facility]. ID Date Data Source URINE CULTURE 07/31/2020 12:00:00 AM EST eCW1 ([facility]) Name Value Range Interpretation Code Description Data Eboni rce(s) Supporting Document(s) URINE CULTURE eCW1 ([facility]) ID Date Data Source UA URINALYSIS 07/31/2020 12:00:00 AM EST eCW1 ([facility]) Name Value Range Interpretation Code Description Data Eboni rce(s) Supporting Document(s) UA URINALYSIS eCW1 ([facility]) ID Date Data Source [id number] 07/26/2020 10:15:00 AM EST [facility] Name Value Range Interpretation Code Description Data Eboni rce(s) Supporting Document(s) SARS coronavirus 2 RNA [facility] This lab was ordered by [facility] and reported by [facility]. ID Date Data Source Coronavirus 2019 Nasopharygeal (Send Out) COVID 07/26/2020 1 2:00:00 AM EST eCW1 ([facility]) Name Value Range Interpretation Code Description Data Eboni rce(s) Supporting Document(s) This nucleic acid amplification test was developed and its CORONAVIRUS 2019 NASOPHARYGEAL eCW1 ([facility]) Procedure Social History Code Duration Value Status Description Data Source(s ) Smoking 09/20/2020 12:00:00 AM EST Never Smoker completed Never S moker eCW1 ([facility]) Smoking 09/20/2020 12:00:00 AM EST Never Smoker completed Never S moker eCW1 ([facility]) Smoking 09/20/2020 12:00:00 AM EST Never Smoker completed Never S moker eCW1 ([facility]) Smoking 09/10/2020 12:00:00 AM EST Never Smoker completed Never S moker eCW1 ([facility]) Smoking 09/10/2020 12:00:00 AM EST Never Smoker completed Never S moker eCW1 ([facility]) Smoking 09/10/2020 12:00:00 AM EST Never Smoker completed Never S moker eCW1 ([facility]) Smoking 09/09/2020 12:00:00 AM EST Never Smoker completed Never S moker eCW1 ([facility]) Smoking 08/19/2020 12:00:00 AM EST Never Smoker completed Never S moker eCW1 ([facility]) Smoking 08/19/2020 12:00:00 AM EST Never Smoker completed Never S moker eCW1 ([facility]) Smoking 08/19/2020 12:00:00 AM EST Never Smoker completed Never S moker eCW1 ([facility]) Smoking 08/19/2020 12:00:00 AM EST Never Smoker completed Never S moker eCW1 ([facility]) Smoking 08/01/2020 12:00:00 AM EST Never Smoker completed Never S moker eCW1 ([facility]) Smoking 08/01/2020 12:00:00 AM EST Never Smoker completed Never S moker eCW1 ([facility]) Smoking 08/01/2020 12:00:00 AM EST Never Smoker completed Never S moker eCW1 ([facility]) Smoking 07/26/2020 12:00:00 AM EST Never Smoker completed Never S moker eCW1 ([facility]) Smoking 07/26/2020 12:00:00 AM EST Never Smoker completed Never S moker eCW1 ([facility]) Vital Signs ID Date Data Source UNK Name Value Range Interpretation Code Description Data Source(s) Diastolic blood pressure 74 mm[Hg] 74 mm[Hg] eCW1 ([facility]) Systolic blood pressure 140 mm[Hg] 140 mm[Hg] e CW1 ([facility]) Body mass index (BMI) [Ratio] 38.79 kg/m2 38.79 kg/m2 W1 ([facility]) Body height 63 [in_i] 63 [in_i] W1 ([facility]) Body weight 99.34 kg 99.34 kg W1 ([facility]) Body weight 219 [lb_av] 219 [lb_av] eCW1 ([facility]) Diastolic blood pressure 78 mm[Hg] 78 mm[Hg] eCW1 ([facility]) Systolic blood pressure 144 mm[Hg] 144 mm[Hg] e CW1 ([facility]) Body mass index (BMI) [Ratio] 38.61 kg/m2 38.61 kg/m2 W1 ([facility]) Body height 63 [in_i] 63 [in_i] eCW1 ([facility]) Body weight 98.88 kg 98.88 kg eCW1 ([facility]) Body weight 218 [lb_av] 218 [lb_av] eCW1 ([facility]) Diastolic blood pressure 76 mm[Hg] 76 mm[Hg] eCW1 ([facility]) Systolic blood pressure 140 mm[Hg] 140 mm[Hg] e CW1 ([facility]) Body temperature 97.1 [degF] 97.1 [degF] eCW1 ( [facility]) Respiratory rate 19 /min 19 /min eCW1 ([facility]) Heart rate 81 /min 81 /min eCW1 ([facility]) Body mass index (BMI) [Ratio] 38.61 kg/m2 38.61 kg/m2 eCW1 ([facility]) Body height 63 [in_i] 63 [in_i] eCW1 ([facility]) Body weight 218 [lb_av] 218 [lb_av] eCW1 ([facility]) Diastolic blood pressure 84 mm[Hg] 84 mm[Hg] eCW1 ([facility]) Systolic blood pressure 132 mm[Hg] 132 mm[Hg] e CW1 ([facility]) Body temperature 98.3 [degF] 98.3 [degF] eCW1 ( [facility]) Respiratory rate 20 /min 20 /min eCW1 ([facility]) Heart rate 94 /min 94 /min eCW1 ([facility]) Body mass index (BMI) [Ratio] 39.14 kg/m2 39.14 kg/m2 eCW1 ([facility]) Body height 63 [in_i] 63 [in_i] eCW1 ([facility]) Body weight 221 [lb_av] 221 [lb_av] eCW1 ([facility]) Patient Treatment Plan of Care Planned Activity Planned Date Details Description Data Source (s) Losartan Potassium 25 MG Oral Tablet 09/10/2020 12:00:00 AM EST eCW1 ([facility]) Losartan Potassium 25 MG Oral Tablet 09/10/2020 12:00:00 AM EST eCW1 ([facility]) Losartan Potassium 25 MG Oral Tablet 09/10/2020 12:00:00 AM EST eCW1 ([facility]) Losartan Potassium 25 MG Oral Tablet 09/10/2020 12:00:00 AM EST eCW1 ([facility]) Losartan Potassium 25 MG Oral Tablet 09/10/2020 12:00:00 AM EST eCW1 ([facility]) Losartan Potassium 25 MG Oral Tablet 09/10/2020 12:00:00 AM EST eCW1 ([facility]) Sulfamethoxazole 800 MG / Trimethoprim 160 MG Oral Tab let [Bactrim] 07/26/2020 12:00:00 AM EST eCW1 ([facility]) Sulfamethoxazole 800 MG / Trimethoprim 160 MG Oral Tab let [Bactrim] 07/26/2020 12:00:00 AM EST eCW1 ([facility])
--- OUTSIDE RECORDS SUMMARY | 2020-10-14 06:11 | CCD ---
Author Author [facility] Organization [facility] [employer] [facility] Address Unknown Phone Unavailable Care Team Providers Care Beater Engineer Name Role Phone RasconCassandra Unavailable PROBLEMS Type Condition ICD9-CM Code [id number] Code Onset Dates Condition S tatus SNOMED Code Notes Problem Allergic rhinitis, unspecified allergic rhinitis type J30.9 Active 28186272 Problem Depressive disorder, not elsewhere classified F32.9 Active 73804943 Problem Insomnia, unspecified type G47.00 Active 40074 2000 Problem Upper respiratory tract infection, unspecified type J06.9 Active 61189331 Problem Obesity (BMI 35.0-39.9 without comorbidity) E66.9 Active 543820861 Problem Increased urinary frequency R35.0 Active 1621 41227 Problem Hyperlipidemia, unspecified hyperlipidemia type E7 8.5 Active 73596895 Problem Type 2 diabetes mellitus wit hout complication, without long-term current use of insulin E11.9 Active 550165317 Problem Lumbago with sciatica, left side M54.42 Active 068936930 Problem Chest wall tenderness R07.89 Active 647414416 ALLERGIES Allergen (clinical drug ingredient) Drug/Non Drug Allergy do cumented on EMR Reaction Allergy Type Onset Date Status zolpidem Ambien([facility] Code:[address]-57) Confusion Drug Allergy Active ENCOUNTERS from 1960 to 2020-07-29 Encounter Location Date Provider Diagnosis [address] [id number] Jul, Cassandra Rascon IMMUNIZATIONS No Information SOCIAL HISTORY Tobacco Use: Social History Observation Description Date Details (start date - stop date) Never Smoker Sex Assigned At : Social History Observation Description Sex Assigned At Unknown Audit Question Answer Notes Total Score: 0 Interpretation: Alcohol Education Language: Question Answer Notes Languages spoken: Ghanaian Islam: Question Answer Notes Islam No restorationist beliefs that would impact health care. Sexual [...] Notes Start Da te End Date Status Vitamin B Complex - 1 tab Orally Daily Active Atorvastatin Calcium 40 MG 1 tablet Orally Once a day for 90 day (s) Oct, Active Metformin HCl 1000 MG 1 tablet with a meal Orally bid for 90 day (s) Jul, Not-Taking Claritin 10 MG 1 tablet Orally Once a day as needed for 90 day( s) Oct, Active Calcium & Magnesium Carbonates 520-400 MG 1 tab Orally Daily for 90 day(s) Active Zoloft 100 MG 1 tablet Orally Once a day for 90 days Active Multivitamins OTC 1 tablet Orally Once a day for 90 day(s) Active Bactrim DS 800-160 MG 1 tablet Orally Twice a day for 3 days Jul, Active PROCEDURES No Information RESULTS No Results REASON FOR VISIT COVID test results MEDICAL (GENERAL) HISTORY Type Description Date Medical History depression, Treated with zoloft W2W, Medical History Lipid panal performed 11/2014 - ASCVD-10 1.4%. 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 Medical History Other obesity [...] Flair 2012 Hospitalization History 1981 Hospitalization History 1984 Goals Section No Information Health Concerns No Information MEDICAL EQUIPMENT No Information MENTAL STATUS No Information FUNCTIONAL STATUS No Information ASSESSMENTS No Information PLAN OF TREATMENT Medication Medication Name Sig Start Date Stop Date Bactrim DS 800-160 MG 1 tablet Orally Twice a day for 3 days Jul, Next Appt Details Provider Name:Cassandra Tarah, 2020-07-31 08 :15:00 AM, [address] [place] [address], [address], Provider Name:Hilda Perez, 2020-08-01 01:00:00 PM, [address] [place] [address], [id number], Insurance Providers Payer Name Payer Address Payer Phone Insured Name Patient Relati onship to Insured Coverage Start Date Coverage End Date MEDICAID [employer] [address] [facility] [id number] KALEIGH CAVAZOS self
--- OUTSIDE RECORDS SUMMARY | 2020-10-14 06:11 | CCD ---
Author Author [facility] Organization [facility] Address Unknown Phone Unavailable Care Team Providers Care Neonatal Pediatric Nurse Name Role Phone Tarah Cassandra Unavailable PROBLEMS Type Condition ICD9-CM Code [id number] Code Onset Dates Condition S tatus SNOMED Code Notes Problem Allergic rhinitis, unspecified allergic rhinitis type J30.9 Active 76980613 Problem Obesity (BMI 35.0-39.9 without comorbidity) E66.9 Active 651810660 Problem Type 2 diabetes mellitus wit hout complication, without long-term current use of insulin E11.9 Active 130027195 Problem Hyperlipidemia, unspecified hyperlipidemia type E7 8.5 Active 24201384 Problem Lumbago with sciatica, left side M54.42 Active 659087355 Problem PMB (postmenopausal bleeding) N95.0 Active 76 372471 Problem Insomnia, unspecified type G47.00 Active 84112 2000 Problem Endometrial thickening on ultrasound R93.89 Act harriet 929143725 Problem Depressive disorder, not elsewhere classified F32.9 Active 29220768 Problem Chest wall tenderness R07.89 Active 035342468 Problem Increased urinary frequency R35.0 Active 1621 92913 Problem Upper respiratory tract infection, unspecified type J06.9 Active 02504170 Problem Abnormal uterine bleeding (AUB) N93.9 Active 69685247084228 ALLERGIES Allergen (clinical drug ingredient) Drug/Non Drug Allergy do cumented on EMR Reaction Allergy Type Onset Date Status zolpidem Ambien([facility] Code:[address]-62) Confusion Drug Allergy Active ENCOUNTERS from 1960 to 2020-08-24 Encounter Location Date Provider Diagnosis [facility] GME Resident [address] [facility] [place] [address] 13 Jul, 2020 Cassandra Rascon Upper respiratory tract infe ction, unspecified type J06.9 ; Increased urinary frequency R35.0 and Chest wall tenderness R07.89 IMMUNIZATIONS No Information SOCIAL HISTORY Tobacco Use: Social History Observation Description Date Details (start date - stop date) Never Smoker Sex Assigned At : Social History Observation Description Sex Assigned At Unknown Audit Question Answer Notes Total Score: 0 Interpretation: Alcohol Education Language: Question Answer Notes Languages spoken: Zambian Taoism: Question Answer Notes Taoism No moravian beliefs that would impact health care. Sexual [...] REASON FOR REFERRAL No Information VITAL SIGNS Weight 221 lbs Jul, Height 63 in Jul, BMI 39.14 kg/m2 Jul, Heart Rate 94 /min Jul, Respiratory Rate 20 /min Jul, Temperature 98.3 degrees Fahrenheit Jul, Oximetry 97 Jul, Blood pressure systolic 132 mm Hg Jul, Blood pressure diastolic 84 mm Hg Jul, MEDICATIONS Medication SIG (Take, Route, Frequency, Duration) Notes Start Da te End Date Status Calcium & Magnesium Carbonates 520-400 MG 1 tab Orally Daily for 90 day(s) Active Claritin 10 MG 1 tablet Orally Once a day as needed for 90 day( s) Oct, Active Atorvastatin Calcium 40 MG 1 tablet Orally Once a day for 90 day (s) Oct, Active Metformin HCl 1000 MG 1 tablet with a meal Orally bid for 90 day (s) Jul, Not-Taking Bactrim DS 800-160 MG 1 tablet Orally Twice a day for 3 days Jul, Not-Taking Zoloft 100 MG 1 tablet Orally Once a day for 90 days Active Saline Nasal [place] 0.65 % 2 sprays in each nostril as needed Nasally every 4 hours as needed for 10 day(s) Jul, Ac tive Multivitamins OTC 1 tablet Orally Once a day for 90 day(s) Active Atrovent HFA 17 MCG/ACT 2 puffs Inhalation four time s daily as needed for 10 day(s) Jul, Not-Taking Vitamin B Complex - 1 tab Orally Daily Active PROCEDURES No Information RESULTS Component Value Reference Range Coronavirus 2019 Nasopharygeal (Send Out ) COVID Reviewed date:07/29/2020 00:52:06 Interpretation: Performing Lab:[facility] [address] [place] [address] , ,[place] [address] CORONAVIRUS 2019 NASOPHARYGEAL This nucleic acid ampli fication test was developed and its CORONAVIRUS 2019 NASOPHARYGEAL performance characteris tics determined by [facility] CORONAVIRUS 2019 NASOPHARYGEAL [facility]. Nucleic a kaylee amplification tests include PCR CORONAVIRUS 2019 NASOPHARYGEAL and TMA. This test has not been FDA cleared or approved. CORONAVIRUS 2019 NASOPHARYGEAL This test has been auth orized by FDA under an Emergency Use CORONAVIRUS 2019 NASOPHARYGEAL Authorization (EUA). is test is only authorized for CORONAVIRUS 2019 NASOPHARYGEAL the duration of time e declaration that circumstances CORONAVIRUS 2019 NASOPHARYGEAL exist justifying the au thorization of the emergency use of CORONAVIRUS 2019 NASOPHARYGEAL in vitro diagnostic paloma ts for detection of SARS-CoV-2 virus CORONAVIRUS 2019 NASOPHARYGEAL and/or diagnosis of COV ID-19 infection under section CORONAVIRUS 2019 NASOPHARYGEAL 564(b)(1) of the Act, 2 1 U.S.C. 360bbb-3(b) (1), unless the CORONAVIRUS 2019 NASOPHARYGEAL authorization is terminated o r revoked sooner. CORONAVIRUS 2019 NASOPHARYGEAL When diagnostic testing is negative, the possibility of a CORONAVIRUS 2019 NASOPHARYGEAL false negative result s hould be considered in the context CORONAVIRUS 2019 NASOPHARYGEAL of a patient's recent e xposures and the presence of CORONAVIRUS 2019 NASOPHARYGEAL clinical signs and symp toms consistent with COVID-19. An CORONAVIRUS 2019 NASOPHARYGEAL individual without symp toms of COVID-19 and who is not CORONAVIRUS 2019 NASOPHARYGEAL shedding SARS-CoV-2 vir us would expect to have a negative CORONAVIRUS 2019 NASOPHARYGEAL (not detected) result in this assay. CORONAVIRUS 2019 NASOPHARYGEAL Performed at: [facility] CORONAVIRUS 2019 NASOPHARYGEAL [address], [place], [place] [id number] CORONAVIRUS 2019 NASOPHARYGEAL Sales Advisor: Judy Trejo PhD, Phone: [phone] CORONAVIRUS 2019 NASOPHARYGEAL CORONAVIRUS 2019 NASOPHARYGEAL Not Detected CORONAVIRUS 2019 NASOPHARYGEAL Urinalysis, no micro Reviewed date:08/02/2020 08:11:56 Interpretation: Performing Lab:[facility], [place] [address] Spec gravity 1.005 1.002 - 1.035 pH 6 5.0 - 9.0 Leukocyte neg Negative - Nitrate neg Negative - Protein neg Negative - mg/dl Glucose neg Negative - mg/dl Ketones neg Negative - mg/dl Urobili neg Normal - mg/dl Bilirubin neg Negative - Blood trace Negative - Internal QC Acceptable (Y/N) yes REASON FOR VISIT Respiratory symptoms, urinary frequency, and chest tenderness MEDICAL (GENERAL) HISTORY Type Description Date Medical History depression, Treated with zoloft W2W, Medical History Lipid panal performed 11/2014 - ASCVD-10 1.4%. 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 COVID test ordered and sample obtained in clinic today. Discussed with patient she should be on quarantine at home until at least the COVID result returns negative; recommended frequent hand washing. Patient verbalized agreement and verbalized that she lives alone. [facility] paperwork given to patient. Jul, Increased urinary frequency (ICD-10 - R35.0) Patient reported increased urinary frequency about 10 times a day. Pt voiced no urinary or bowel incontinence. In-house Urine dip-stick in house positive for blood which may indicate UTI. Ordered UA and urine cx labs, and pt will be started on bactrim . Other ddx include detrusor activity vs bladder outlet obstruction. Patient will follow up in a week. If no improvment of symptoms, further evaluation may be warranted including cytoscopy/cystometry and patient may be recommended behavioral treatment and/or anti-muscuranic agent Jul, Chest wall tenderness (ICD-10 - R07.89) Patient reported 1 week of chest wall tenderness in left precordial region ONLY with palpation and not triggered by activities, ddx including muscle strain and less likely costochondritis, pleuritis; cardiac etiology is less likely on the differential. Discussed with patient that if there is any change of her chest pain/chest tenderness such as becoming persistent, present without palpation, worsening pain, radiation of pain to other region, presence of nausea/vomiting, new numbness/tingling/loss of sensation, patient should call clinic or seek immediate medical care. The above were discussed with patient in generic terms and patient verbalized agreement PLAN OF TREATMENT Treatment Notes Assessment Notes Clinical Notes Upper respiratory tract infection, unspecified type Patient reported cough with loss of smell and loss of taste with travel hx. COVID test ordered and sample obtained in clinic today. Discussed with patient she should be on quarantine at home until at least the COVID result returns negative; recommended frequent hand washing. Patient verbalized agreement and verbalized that she lives alone. [facility] paperwork given to patient. Increased urinary frequency Patient repo rted increased urinary frequency about 10 times a day. Pt voiced no urinary or bowel incontinence. In-house Urine dip- stick in house positive for blood which may indicate UTI. Ordered UA and urine cx labs, and pt will be started on bactrim . Other ddx include detrusor activity vs bladder outlet obstruction. Patient will follow up in a week. If no improvment of symptoms, further evaluation may be warranted including cytoscopy/cystometry and patient may be recommended behavioral treatment and/or anti-muscuranic agent Chest wall tenderness Patient reported 1 week of chest wall tenderness in left precordial region ONLY with palpation and not triggered by activities, ddx including muscle strain and less likely costochondritis, pleuritis; cardiac etiology is less likely on the differential. Discussed with patient that if there is any change of her chest pain/chest tenderness such as becoming persistent, present without palpation, worsening pain, radiation of pain to other region, presence of nausea/vomiting, new numbness/tingling/loss of sensation, patient should call clinic or seek immediate medical care. The above were discussed with patient in generic terms and patient verbalized agreement Treatment Notes Test Name Order Date UA URINALYSIS 2020-08-24 URINE CULTURE 2020-08-24 Next Appt Details 1 Week Reason: Provider Name:Cassandra Rascon, 2020-09-10 11 :30:00 AM, [address] [place], [place], [id number], Insurance Providers Payer Name Payer Address Payer Phone Insured Name Patient Relati onship to Insured Coverage Start Date Coverage End Date MEDICAID [employer] [address] [facility] [id number] KALEIGH CAVAZOS self
--- OUTSIDE RECORDS SUMMARY | 2020-10-14 06:11 | CCD ---
Author Author [facility] Organization [facility] Address Unknown Phone Unavailable Care Team Providers Care Nuclear Waste Management Engineer Name Role Phone TarahCassandra Unavailable PROBLEMS Type Condition ICD9-CM Code [id number] Code Onset Dates Condition S tatus SNOMED Code Notes Problem Insomnia, unspecified type G47.00 Active 77324 2000 Problem Type 2 diabetes mellitus wit hout complication, without long-term current use of insulin E11.9 Active 075873165 Problem Hyperlipidemia, unspecified hyperlipidemia type E7 8.5 Active 17767732 Problem Obesity (BMI 35.0-39.9 without comorbidity) E66.9 Active 976690527 Problem Abnormal uterine bleeding (AUB) N93.9 Active 08633686343175 Problem Depressive disorder, not elsewhere classified F32.9 Active 75902228 Problem PMB (postmenopausal bleeding) N95.0 Active 76 576521 Problem Allergic rhinitis, unspecified allergic rhinitis type J30.9 Active 86146333 Problem Lumbago with sciatica, left side M54.42 Active 383948386 Problem Increased urinary frequency R35.0 Active 1621 52760 Problem Chest wall tenderness R07.89 Active 109156036 Problem Upper respiratory tract infection, unspecified type J06.9 Active 84514052 ALLERGIES Allergen (clinical drug ingredient) Drug/Non Drug Allergy do cumented on EMR Reaction Allergy Type Onset Date Status zolpidem Ambien([facility] Code:[address]-47) Confusion Drug Allergy Active ENCOUNTERS from 1960 to 2020-08-02 Encounter Location Date Provider Diagnosis [facility] GME Resident [address] [place] [address] 18 Jul, 2020 Cassandra Rascon Hematuria, unspecified type R31.9 ; Viral upper respiratory tract infection J06.9 and Chest wall tenderness R07.89 IMMUNIZATIONS No Information SOCIAL HISTORY Tobacco Use: Social History Observation Description Date Details (start date - stop date) Never Smoker Sex Assigned At : Social History Observation Description Sex Assigned At Unknown Audit Question Answer Notes Total Score: 0 Interpretation: Alcohol Education Language: Question Answer Notes Languages spoken: Estonian Latter-Day: Question Answer Notes Latter-Day No moravian beliefs that would impact health [...] FOR REFERRAL No Information VITAL SIGNS Weight 218 lbs Jul, Height 63 in Jul, BMI 38.61 kg/m2 Jul, Heart Rate 81 /min Jul, Respiratory Rate 19 /min Jul, Temperature 97.1 degrees Fahrenheit Jul, Oximetry 95 Jul, Blood pressure systolic 140 mm Hg Jul, Blood pressure diastolic 76 mm Hg Jul, MEDICATIONS Medication SIG (Take, Route, Frequency, Duration) Notes Start Da te End Date Status Metformin HCl 1000 MG 1 tablet with a meal Orally bid for 90 day (s) Jul, Not-Taking Atrovent HFA 17 MCG/ACT 2 puffs Inhalation four time s daily as needed for 10 day(s) Jul, Active Bactrim DS 800-160 MG 1 tablet Orally Twice a day for 3 days Jul, Not-Taking Atorvastatin Calcium 40 MG 1 tablet Orally Once a day for 90 day (s) Oct, Active Multivitamins OTC 1 tablet Orally Once a day for 90 day(s) Active Calcium & Magnesium Carbonates 520-400 MG 1 tab Orally Daily for 90 day(s) Active Claritin 10 MG 1 tablet Orally Once a day as needed for 90 day( s) Oct, Active Vitamin B Complex - 1 tab Orally Daily Active Zoloft 100 MG 1 tablet Orally Once a day for 90 days Active Saline Nasal [place] 0.65 % 2 sprays in each nostril as needed Nasally every 4 hours as needed for 10 day(s) Jul, Ac tive PROCEDURES No Information RESULTS Component Value Reference Range UA URINALYSIS Reviewed date:07/31/2020 17:37:03 Interpretation:Normal UA Performing Lab:[facility] LABORATORY [address] [facility] [address] , ,[place] [address] URINE CULTURE Reviewed date:08/01/2020 09:57:25 Interpretation:no growth Performing Lab:[facility] LABORATORY [address] [facility] [address] , ,[place] [address] REASON FOR VISIT 1 WEEK FOLLOW UP MEDICAL (GENERAL) HISTORY Type Description Date Medical History depression, Treated with zoloft W2W, Medical History Lipid panal performed 11/2014 - ASCVD-10 1.4%. 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 Patient reported that she has OBGYN visit tomorrow and will be evaluated; she denies any unintentional weight loss. Pt also reportedurinary frequency and urgency. S/p 3 days of bactrim, reported mild improvement of urinary symptoms. Urine dipstick in-house showed pos for blood. UA and urine cx ordered Jul, Viral upper respiratory tract infection (ICD-10 - J06.9) Viral URI lasting about 8 days so far without any fever or chills. Will start nasal saline spray and atrovent nasal spray. Discussed with patient that possible side effect of atrovent nasal spray may include nasal bleeding, and discussed with patient that if there are any adverse rxn that she cannot tolerate, please stop the medication and give clinic a phone call. Patient is advised to call clinic if there is any change of condition including if there is any onset of fever, chills, or worsening or cough. Jul, Chest wall tenderness (ICD-10 - R07.89) Patient still has chest wall tenderness in left precordial region ONLY with palpation and not triggered by activities, ddx including muscle strain from excessive coughing and less likely costochondritis, pleuritis; cardiac etiology [...] patient in generic terms and patient verbalized agreement. PLAN OF TREATMENT Treatment Notes Assessment Notes Clinical Notes Hematuria, unspecified type Pt reported blood while wiping but is unsure if it is vaginal bleeding or hematuria. Patient reported that she has OBGYN visit tomorrow and will be evaluated; she denies any unintentional weight loss. Pt also reportedurinary frequency and urgency. S/p 3 days of bactrim, reported mild improvement of urinary symptoms. Urine dipstick in-house showed pos for blood. UA and urine cx ordered Viral upper respiratory tract infection Viral URI lasting about 8 days so far without any fever or chills. Will start nasal saline spray and atrovent nasal spray. Discussed with patient that possible side effect of atrovent nasal spray may include nasal bleeding, and discussed with patient that if there are any adverse rxn that she cannot tolerate, please stop the medication and give clinic a phone call. Patient is advised to call clinic if there is any change of condition including if there is any onset of fever, chills, or worsening or cough. Chest wall tenderness Patient still has chest wall tenderness in left precordial region ONLY with palpation and not triggered by activities, ddx including muscle strain from excessive coughing and less likely costochondritis, pleuritis; cardiac etiology [...] patient in generic terms and patient verbalized agreement. Next Appt Details 1 month Reason: Provider Name:Cassandra Chen, 2020-09-10 11 :30:00 AM, [address] [place], [address], Insurance Providers Payer Name Payer Address Payer Phone Insured Name Patient Relati onship to Insured Coverage Start Date Coverage End Date [facility] DEPT [address] [facility] [phone] KALEIGH CAVAZOS
--- OUTSIDE RECORDS SUMMARY | 2020-10-14 06:11 | CCD ---
Author Author [facility] Organization [facility] Address Unknown Phone Unavailable Care Team Providers Care Collections Representative Name Role Phone ChrisHilda martinez Unavailable PROBLEMS Type Condition ICD9-CM Code [id number] Code Onset Dates Condition S tatus SNOMED Code Notes Problem Allergic rhinitis, unspecified allergic rhinitis type J30.9 Active 15964562 Problem Obesity (BMI 35.0-39.9 without comorbidity) E66.9 Active 619848449 Problem Type 2 diabetes mellitus wit hout complication, without long-term current use of insulin E11.9 Active 954521671 Problem Hyperlipidemia, unspecified hyperlipidemia type E7 8.5 Active 91160799 Problem Lumbago with sciatica, left side M54.42 Active 765409020 Problem PMB (postmenopausal bleeding) N95.0 Active 76 626935 Problem Insomnia, unspecified type G47.00 Active 50893 2000 Problem Endometrial thickening on ultrasound R93.89 Act harriet 103711445 Problem Depressive disorder, not elsewhere classified F32.9 Active 16687025 Problem Chest wall tenderness R07.89 Active 443518829 Problem Increased urinary frequency R35.0 Active 1621 86049 Problem Upper respiratory tract infection, unspecified type J06.9 Active 50459183 Problem Abnormal uterine bleeding (AUB) N93.9 Active 50815283181304 ALLERGIES Allergen (clinical drug ingredient) Drug/Non Drug Allergy do cumented on EMR Reaction Allergy Type Onset Date Status zolpidem Ambien([facility] Code:[address]-52) Confusion Drug Allergy Active ENCOUNTERS from 1960 to 2020-08-24 Encounter Location Date Provider Diagnosis [facility] [address] [place] [id number] Aug, Hilda Mcdanieljac IMMUNIZATIONS No Information SOCIAL HISTORY Tobacco Use: Social History Observation Description Date Details (start date - stop date) Never Smoker Sex Assigned At : Social History Observation Description Sex Assigned At Unknown Audit Question Answer Notes Total Score: 0 Interpretation: Alcohol Education Language: Question Answer Notes Languages spoken: Vincentian Uatsdin: Question Answer Notes Uatsdin No holiness beliefs that would impact health care. Sexual [...] day for 90 days Active Saline Nasal [place] 0.65 % 2 sprays in each nostril [...] Orally Daily Active PROCEDURES No Information RESULTS No Results REASON FOR VISIT results MEDICAL (GENERAL) HISTORY Type Description Date Medical History depression, Treated with zoloft W2W, Medical History Lipid panal performed 11/2014 - ASCVD-10 1.4%. 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 user Medical History Other obesity [...] 1994 & 08/04/13 Hospitalization History [facility] 2013 Hospitalization History 1982 Hospitalization History 1984 Goals Section No Information Health Concerns No Information MEDICAL EQUIPMENT No Information MENTAL STATUS No Information FUNCTIONAL STATUS No Information ASSESSMENTS No Information PLAN OF TREATMENT Next Appt Details Provider Name:Cassandra Tarah, 2020-09-10 11 :30:00 AM, [address] [place], [address], Insurance Providers Payer Name Payer Address Payer Phone Insured Name Patient Relati onship to Insured Coverage Start Date Coverage End Date MEDICAID [employer] [address] [facility] [id number] KALEIGH CAVAZOS self
--- OUTSIDE RECORDS SUMMARY | 2020-10-14 06:11 | CCD ---
Author Author [facility] Organization [facility] Address Unknown Phone Unavailable Care Team Providers Care Water Vessel Captain Name Role Phone Hilda Perez Unavailable PROBLEMS Type Condition ICD9-CM Code HAO66-FS Code Onset Dates Condition S tatus SNOMED Code Notes Problem Insomnia, unspecified type G47.00 Active 19612 2000 Problem Type 2 diabetes mellitus wit hout complication, without long-term current use of insulin E11.9 Active 292041588 Problem Hyperlipidemia, unspecified hyperlipidemia type E7 8.5 Active 17600090 Problem Obesity (BMI 35.0-39.9 without comorbidity) E66.9 Active 599236837 Problem Abnormal uterine bleeding (AUB) N93.9 Active 95755685225832 Problem Depressive disorder, not elsewhere classified F32.9 Active 92380097 Problem PMB (postmenopausal bleeding) N95.0 Active 76 807353 Problem Allergic rhinitis, unspecified allergic rhinitis type J30.9 Active 04918867 Problem Lumbago with sciatica, left side M54.42 Active 102986008 Problem Increased urinary frequency R35.0 Active 1621 07896 Problem Chest wall tenderness R07.89 Active 417302749 Problem Upper respiratory tract infection, unspecified type J06.9 Active 53074602 ALLERGIES Allergen (clinical drug ingredient) Drug/Non Drug Allergy do cumented on EMR Reaction Allergy Type Onset Date Status zolpidem Ambien([facility] Code:[address]-06) Confusion Drug Allergy Active ENCOUNTERS from 1960 to 2020-08-03 Encounter Location Date Provider Diagnosis [facility] [address] [place] [phone] Jul, Hilda Perez Routine gynecologica l examination Z01.419 ; Cervical cancer screening Z12.4 ; Breast cancer screening by mammogram Z12.31 ; Abnormal uterine bleeding (AUB) N93.9 and PMB (postmenopausal bleeding) N95.0 IMMUNIZATIONS No Information SOCIAL HISTORY Tobacco Use: Social History Observation Description Date Details (start date - stop date) Never Smoker Sex Assigned At : Social History Observation Description Sex Assigned At Unknown Audit Question Answer Notes Total Score: 0 Interpretation: Alcohol Education Language: Question Answer Notes Languages spoken: Chadian Jewish: Question Answer Notes Jewish No restorationist beliefs that would impact health [...] Information VITAL SIGNS Weight 218 lbs Jul, Weight-kg 98.88 kg Jul, Height 63 in Jul, BMI 38.61 kg/m2 Jul, Blood pressure systolic 144 mm Hg Jul, Blood pressure diastolic 78 mm Hg Jul, MEDICATIONS Medication SIG (Take, [...] day for 90 days Active Saline Nasal [place] 0.65 % 2 sprays in each nostril as needed Nasally every 4 hours as needed for 10 day(s) Jul, Ac tive PROCEDURES No Information RESULTS No Results REASON FOR VISIT annual MEDICAL (GENERAL) HISTORY Type Description Date Medical History depression, Treated with zoloft W2W, Medical History Lipid panal performed 11/2014 - ASCVD-10 1.4%. 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 419) Jul, Cervical cancer screening (ICD-10 - Z12.4) Jul, Breast cancer screening by mammogram (ICD-10 - Z 12.31) Jul, Abnormal uterine bleeding (AUB) (ICD-10 - N93.9) discussed likelihood of needing embx, will start with u/s and obtain measurement of lining. Jul, PMB (postmenopausal bleeding) (ICD-10 - N95.0) PLAN OF TREATMENT Treatment Notes Assessment Notes Clinical Notes Abnormal uterine bleeding (AUB) discusse d likelihood of needing embx, will start with u/s and obtain measurement of lining. Treatment Notes Test Name Order Date PAP REQUEST FOR SERVICE 2020-08-03 [facility] Sai Screening Bilateral (Ultrasound if Indicated ) (3D Mammo) 2020-08-03 [facility] Pelvis non-OB COMPLETE US 2020-08-03 Next Appt Details prn Reason:f/u per labs and u/s Provider Name:Cassandra Rascon, 2020-09-10 11 :30:00 AM, [address] [facility], [place], [address], Follow Up:prnf/u per labs and u/s Insurance Providers Payer Name Payer Address Payer Phone Insured Name Patient Relati onship to Insured Coverage Start Date Coverage End Date [facility] [employer]ATE CLAIMS DEPT [address] [facility] [phone] KALEIGH CAVAZOS self
--- OUTSIDE RECORDS SUMMARY | 2020-10-14 06:11 | CCD ---
Author Author [facility] Organization [facility] Address Unknown Phone Unavailable Care Team Providers Care Casino Floorperson Name Role Phone Cassandra Rascon Unavailable PROBLEMS Type Condition ICD9-CM Code MQR33-EQ Code Onset Dates Condition S tatus SNOMED Code Notes Problem Obesity (BMI 35.0-39.9 without comorbidity) E66.9 Active 522901141 Problem Depressive disorder, not elsewhere classified F32.9 Active 62970305 Problem Allergic rhinitis, unspecified allergic rhinitis type J30.9 Active 93004046 Problem Hyperlipidemia, unspecified hyperlipidemia type E7 8.5 Active 46793240 Problem Lumbago with sciatica, left side M54.42 Active 833272039 Problem Chest wall tenderness R07.89 Active 156800805 Problem Hypertension, unspecified type I10 Active 3 3488644 Problem Type 2 diabetes mellitus wit hout complication, without long-term current use of insulin E11.9 Active 316732051 Problem Endometrial thickening on ultrasound R93.89 Act harriet 470346676 Problem Insomnia, unspecified type G47.00 Active 60757 2000 Problem Increased urinary frequency R35.0 Active 1621 06702 Problem Upper respiratory tract infection, unspecified type J06.9 Active 00172971 Problem Abnormal uterine bleeding (AUB) N93.9 Active 91244093876959 Problem PMB (postmenopausal bleeding) N95.0 Active 76 345989 ALLERGIES Allergen (clinical drug ingredient) Drug/Non Drug Allergy do cumented on EMR Reaction Allergy Type Onset Date Status zolpidem Ambien([facility] Code:[address]-35) Confusion Drug Allergy Active ENCOUNTERS from 1960 to 2020-09-11 Encounter [place] [address] Aug, Cassandra Rascon Hypertension, unspecified ty pe I10 IMMUNIZATIONS No Information SOCIAL HISTORY Tobacco Use: Social History Observation Description Date Details (start date - stop date) Never Smoker Sex Assigned At : Social History Observation Description Sex Assigned At Unknown Audit Question Answer Notes Total Score: 0 Interpretation: Alcohol Education Language: Question Answer Notes Languages spoken: Uzbek Quaker: Question Answer Notes Quaker No temple beliefs that would impact health care. Sexual [...] 30 day(s ) Aug, Active Saline Nasal [place] 0.65 % 2 sprays in each nostril as needed Nasally every 4 hours as needed for 10 day(s) Jul, Ac tive Atorvastatin Calcium 40 MG 1 tablet Orally Once a day for 90 day (s) Oct, Active PROCEDURES No Information RESULTS No Results REASON FOR VISIT Xray MEDICAL (GENERAL) HISTORY Type Description Date Medical History depression, Treated with zoloft W2W, Medical History Lipid panal performed 11/2014 - ASCVD-10 1.4%. 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 Medical History Other obesity [...] Notes Treatment Notes Treatm ent Clinical Notes Aug, Hypertension, unspecified type (ICD-10 - I10) PLAN OF TREATMENT Medication Medication Name Sig Start Date Stop Date Losartan Potassium 25 MG 1 tablet Orally Once a day for 30 day(s ) Aug, Next Appt Details Provider Name:Aaron Saucedo, 2020-09-24 12:45:00 AM, [address] [place], [address], Insurance Providers Payer Name Payer Address Payer Phone Insured Name Patient Relati onship to Insured Coverage Start Date Coverage End Date MEDICAID [employer] [address] [facility] [address] KALEIGH CAVAZOS self
--- OUTSIDE RECORDS SUMMARY | 2020-10-14 06:11 | CCD ---
Author Author [facility] Organization [facility] Address Unknown Phone Unavailable Care Team Providers Care Surface Lay Out Technician Name Role Phone ChrisHilda martinez Unavailable PROBLEMS Type Condition ICD9-CM Code OZF75-VP Code Onset Dates Condition S tatus SNOMED Code Notes Problem Allergic rhinitis, unspecified allergic rhinitis type J30.9 Active 97468606 Problem Obesity (BMI 35.0-39.9 without comorbidity) E66.9 Active 004211859 Problem Type 2 diabetes mellitus wit hout complication, without long-term current use of insulin E11.9 Active 188136154 Problem Hyperlipidemia, unspecified hyperlipidemia type E7 8.5 Active 46222084 Problem Lumbago with sciatica, left side M54.42 Active 836169143 Problem PMB (postmenopausal bleeding) N95.0 Active 76 080588 Problem Insomnia, unspecified type G47.00 Active 27152 2000 Problem Endometrial thickening on ultrasound R93.89 Act harriet 394509012 Problem Depressive disorder, not elsewhere classified F32.9 Active 67045096 Problem Chest wall tenderness R07.89 Active 176195629 Problem Increased urinary frequency R35.0 Active 1621 40736 Problem Upper respiratory tract infection, unspecified type J06.9 Active 63902248 Problem Abnormal uterine bleeding (AUB) N93.9 Active 71682039763928 ALLERGIES Allergen (clinical drug ingredient) Drug/Non Drug Allergy do cumented on EMR Reaction Allergy Type Onset Date Status zolpidem Ambien([facility] Code:[address]-81) Confusion Drug Allergy Active ENCOUNTERS from 1960 to 2020-08-20 Encounter Location Date Provider Diagnosis [facility] [address] [place] [address] Aug, Hilda Perez PMB (postmenopausal bleeding) N95.0 ; Abnormal uterine bleeding (AUB) N93.9 and Endometrial thickening on ultrasound R93.89 IMMUNIZATIONS No Information SOCIAL HISTORY Tobacco Use: Social History Observation Description Date Details (start date - stop date) Never Smoker Sex Assigned At : Social History Observation Description Sex Assigned At Unknown Audit Question Answer Notes Total Score: 0 Interpretation: Alcohol Education Language: Question Answer Notes Languages spoken: Belarusian Rastafarian: Question Answer Notes Rastafarian No christian beliefs that would impact health care. Sexual [...] FOR REFERRAL No Information VITAL SIGNS Weight 219 lbs Aug, Weight-kg 99.34 kg Aug, Height 63 in Aug, BMI 38.79 kg/m2 Aug, Blood pressure systolic 140 mm Hg Aug, Blood pressure diastolic 74 mm Hg Aug, MEDICATIONS Medication SIG (Take, Route, Frequency, Duration) [...] day for 90 days Active Saline Nasal [place] 0.65 % 2 sprays in each nostril [...] Information RESULTS No Results REASON FOR VISIT endometrial biopsy MEDICAL (GENERAL) HISTORY Type Description Date Medical History depression, Treated with zoloft W2W, Medical History Lipid panal performed 11/2014 - ASCVD-10 1.4%. 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 Medical History Other obesity [...] Treatment Notes Treatm ent Clinical Notes Aug, PMB (postmenopausal bleeding) (ICD-10 - N95.0) Aug, Abnormal uterine bleeding (AUB) (ICD-10 - N93.9) Aug, Endometrial thickening on ultrasound (ICD-10 - R 93.89) PLAN OF TREATMENT Treatment Notes Test Name Order Date Pathology Request For Service 2020-08-20 Next Appt Details prn Reason:F/u per lab Provider Name:Cassandra Rascon 2020-09-10 11 :30:00 AM, [address] [facility], [place], [address], Follow Up:prnF/u per lab Insurance Providers Payer Name Payer Address Payer Phone Insured Name Patient Relati onship to Insured Coverage Start Date Coverage End Date MEDICAID [employer] [address] [facility] [id number] KALEIGH CAVAZOS self
--- OUTSIDE RECORDS SUMMARY | 2020-10-14 06:11 | CCD ---
Author Author [facility] Organization [facility] Address Unknown Phone Unavailable Care Team Providers Care Nurse Staff Industrial Name Role Phone TarahCassandra Unavailable PROBLEMS Type Condition ICD9-CM Code ACN84-IC Code Onset Dates Condition S tatus SNOMED Code Notes Problem Insomnia, unspecified type G47.00 Active 64979 2000 Problem Type 2 diabetes mellitus wit hout complication, without long-term current use of insulin E11.9 Active 483368765 Problem Hyperlipidemia, unspecified hyperlipidemia type E7 8.5 Active 72411381 Problem Obesity (BMI 35.0-39.9 without comorbidity) E66.9 Active 957495076 Problem Abnormal uterine bleeding (AUB) N93.9 Active 22009013036789 Problem Depressive disorder, not elsewhere classified F32.9 Active 56567148 Problem PMB (postmenopausal bleeding) N95.0 Active 76 461640 Problem Allergic rhinitis, unspecified allergic rhinitis type J30.9 Active 60681314 Problem Lumbago with sciatica, left side M54.42 Active 055676090 Problem Increased urinary frequency R35.0 Active 1621 61163 Problem Chest wall tenderness R07.89 Active 791928016 Problem Upper respiratory tract infection, unspecified type J06.9 Active 17556508 ALLERGIES Allergen (clinical drug ingredient) Drug/Non Drug Allergy do cumented on EMR Reaction Allergy Type Onset Date Status zolpidem Ambien([facility] Code:[address]-30) Confusion Drug Allergy Active ENCOUNTERS from 1960 to 2020-08-16 Encounter Location Date Provider Diagnosis [facility] [address] [place] [address] Jul, Cassandra Rascon IMMUNIZATIONS No Information SOCIAL HISTORY Tobacco Use: Social History Observation Description Date Details (start date - stop date) Never Smoker Sex Assigned At : Social History Observation Description Sex Assigned At Unknown Audit Question Answer Notes Total Score: 0 Interpretation: Alcohol Education Language: Question Answer Notes Languages spoken: Luxembourgish Christian: Question Answer Notes Christian No rastafari beliefs that would impact health care. Sexual [...] day for 90 days Active Saline Nasal [place] 0.65 % 2 sprays in each nostril as needed Nasally every 4 hours as needed for 10 day(s) Jul, Ac tive PROCEDURES No Information RESULTS No Results REASON FOR VISIT care gap MEDICAL (GENERAL) HISTORY Type Description Date Medical History depression, Treated with zoloft W2W, Medical History Lipid panal performed 11/2014 - ASCVD-10 1.4%. 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
--- OUTSIDE RECORDS SUMMARY | 2020-10-14 06:11 | CCD ---
Author Author [facility] Organization [facility] Address Unknown Phone Unavailable Care Team Providers Care Manager Resort Name Role Phone TarahCassandra Unavailable PROBLEMS Type Condition ICD9-CM Code SDJ16-IN Code Onset Dates Condition S tatus SNOMED Code Notes Problem Allergic rhinitis, unspecified allergic rhinitis type J30.9 Active 69730565 Problem Obesity (BMI 35.0-39.9 without comorbidity) E66.9 Active 630274303 Problem Type 2 diabetes mellitus wit hout complication, without long-term current use of insulin E11.9 Active 974728168 Problem Hyperlipidemia, unspecified hyperlipidemia type E7 8.5 Active 58155952 Problem Lumbago with sciatica, left side M54.42 Active 815376166 Problem PMB (postmenopausal bleeding) N95.0 Active 76 805406 Problem Insomnia, unspecified type G47.00 Active 98890 2000 Problem Endometrial thickening on ultrasound R93.89 Act harriet 544996244 Problem Depressive disorder, not elsewhere classified F32.9 Active 25564696 Problem Chest wall tenderness R07.89 Active 922017293 Problem Increased urinary frequency R35.0 Active 1621 82089 Problem Upper respiratory tract infection, unspecified type J06.9 Active 56142041 Problem Abnormal uterine bleeding (AUB) N93.9 Active 57997493217613 ALLERGIES Allergen (clinical drug ingredient) Drug/Non Drug Allergy do cumented on EMR Reaction Allergy Type Onset Date Status zolpidem Ambien([facility] Code:[address]-95) Confusion Drug Allergy Active ENCOUNTERS from 1960 to 2020-09-09 Encounter Location Date Provider Diagnosis [facility] [place] [address] Aug, Cassandra Rascon Depressive disorder, not elsewhere class ified F32.9 and Hyperlipidemia, unspecified hyperlipidemia type E78.5 IMMUNIZATIONS No Information SOCIAL HISTORY Tobacco Use: Social History Observation Description Date Details (start date - stop date) Never Smoker Sex Assigned At : Social History Observation Description Sex Assigned At Unknown Audit Question Answer Notes Total Score: 0 Interpretation: Alcohol Education Language: Question Answer Notes Languages spoken: Chadian Christianity: Question Answer Notes Christianity No sikh beliefs that would impact health care. Sexual [...] Notes Start Da te End Date Status Zoloft 100 MG 1 tablet Orally Once a day for 90 days Active Vitamin B Complex - 1 tab Orally Daily Active Claritin 10 MG 1 tablet Orally Once a day as needed for 90 day( s) Oct, Active Bactrim DS 800-160 MG 1 tablet Orally Twice a day for 3 days Jul, Not-Taking Atrovent HFA 17 MCG/ACT 2 puffs Inhalation four time s daily as needed for 10 day(s) Jul, Not-Taking Atorvastatin Calcium 40 MG 1 tablet Orally Once a day for 90 day (s) Oct, Active Calcium & Magnesium Carbonates 520-400 MG 1 tab Orally Daily for 90 day(s) Active Multivitamins OTC 1 tablet Orally Once a day for 90 day(s) Active Saline Nasal [place] 0.65 % 2 sprays in each nostril as needed Nasally every 4 hours as needed for 10 day(s) Jul, Ac tive Metformin HCl 1000 MG 1 tablet with a meal Orally bid for 90 day (s) Jul, Not-Taking PROCEDURES No Information RESULTS No Results REASON FOR VISIT zoloft MEDICAL (GENERAL) HISTORY Type Description Date Medical History depression, Treated with zoloft W2W, Medical History Lipid panal performed 11/2014 - ASCVD-10 1.4%. Medical History longterm systemic steroid user Medical History Other obesity [...] Treatment Notes Treatm ent Clinical Notes Aug, Depressive disorder, not elsewhere classified (I CD-10 - F32.9) Aug, Hyperlipidemia, unspecified hyperlipidemia type (ICD-10 - E78.5) PLAN OF TREATMENT Medication Medication Name Sig Start Date Stop Date Atorvastatin Calcium 40 MG 1 tablet Orally Once a day for 90 day(s) Oct, Zoloft 100 MG 1 tablet Orally Once a day for 90 days Next Appt Details Provider Name:Cassandra Rascon 2020-09-10 11 :30:00 AM, [address] [facility], [place], [address], Insurance Providers Payer Name Payer Address Payer Phone Insured Name Patient Relati onship to Insured Coverage Start Date Coverage End Date MEDICAID [employer] [address] [facility] [id number] KALEIGH CAVAZOS self
--- OUTSIDE RECORDS SUMMARY | 2020-10-14 06:11 | CCD ---
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 Name Role Phone TarahOsiela Unavailable PROBLEMS Type Condition ICD9-CM Code [id number] Code Onset Dates Condition S tatus SNOMED Code Notes Problem Allergic rhinitis, unspecified allergic rhinitis type J30.9 Active 40013132 Problem Obesity (BMI 35.0-39.9 without comorbidity) E66.9 Active 151044516 Problem Type 2 diabetes mellitus wit hout complication, without long-term current use of insulin E11.9 Active 856743624 Problem Hyperlipidemia, unspecified hyperlipidemia type E7 8.5 Active 56490897 Problem Lumbago with sciatica, left side M54.42 Active 528334605 Problem PMB (postmenopausal bleeding) N95.0 Active 76 555983 Problem Insomnia, unspecified type G47.00 Active 96169 2000 Problem Endometrial thickening on ultrasound R93.89 Act harriet 402854317 Problem Depressive disorder, not elsewhere classified F32.9 Active 45702597 Problem Chest wall tenderness R07.89 Active 787071093 Problem Increased urinary frequency R35.0 Active 1621 93860 Problem Upper respiratory tract infection, unspecified type J06.9 Active 12237890 Problem Abnormal uterine bleeding (AUB) N93.9 Active 49425111185669 ALLERGIES Allergen (clinical drug ingredient) Drug/Non Drug Allergy do cumented on EMR Reaction Allergy Type Onset Date Status zolpidem Ambien([facility] Code:[address]-78) Confusion Drug Allergy Active ENCOUNTERS from 1960 to 2020-09-02 Encounter Location Date Provider Diagnosis [address] [address] Aug, Cassandra Rascon IMMUNIZATIONS No Information SOCIAL HISTORY Tobacco Use: Social History Observation Description Date Details (start date - stop date) Never Smoker Sex Assigned At : Social History Observation Description Sex Assigned At Unknown Audit Question Answer Notes Total Score: 0 Interpretation: Alcohol Education Language: Question Answer Notes Languages spoken: Divehi Roman Catholic: Question Answer Notes Roman Catholic No christian beliefs that would impact health [...] day for 90 days Active Saline Nasal Talent 0.65 % 2 sprays in each nostril [...] Information RESULTS No Results REASON FOR VISIT Refill b/p meds MEDICAL (GENERAL) HISTORY Type Description Date Medical History depression, Treated with zoloft W2W, Medical History Lipid panal performed 11/2014 - ASCVD-10 1.4%. Medical History long-term systemic steroid user Medical History Other obesity [...] Flair 2012 Hospitalization History 1982 Hospitalization History 1984 Goals Section No Information Health Concerns No Information MEDICAL EQUIPMENT No Information MENTAL STATUS No Information FUNCTIONAL STATUS No Information ASSESSMENTS No Information PLAN OF TREATMENT Next Appt Details Provider Name:Cassandra Tarah, 2020-09-10 11 :30:00 AM, [address] [facility], [place], [address], Insurance Providers Payer Name Payer Address Payer Phone Insured Name Patient Relati onship to Insured Coverage Start Date Coverage End Date MEDICAID [employer] [address] [facility] [id number] [phone] KALEIGH CAVAZOS self
--- OUTSIDE RECORDS SUMMARY | 2020-10-14 06:11 | CCD ---
Author Author [facility] Organization [facility] Address Unknown Phone Unavailable Care Team Providers Care Litigation Attorney Associate Name Role Phone RasconCassandra Unavailable PROBLEMS Type Condition ICD9-CM Code [id number] Code Onset Dates Condition S tatus SNOMED Code Notes Problem Allergic rhinitis, unspecified allergic rhinitis type J30.9 Active 64574319 Problem Depressive disorder, not elsewhere classified F32.9 Active 12831595 Problem Insomnia, unspecified type G47.00 Active 38598 2000 Problem Upper respiratory tract infection, unspecified type J06.9 Active 22003442 Problem Obesity (BMI 35.0-39.9 without comorbidity) E66.9 Active 457808649 Problem Increased urinary frequency R35.0 Active 1621 20410 Problem Hyperlipidemia, unspecified hyperlipidemia type E7 8.5 Active 68073168 Problem Type 2 diabetes mellitus wit hout complication, without long-term current use of insulin E11.9 Active 997223289 Problem Lumbago with sciatica, left side M54.42 Active 606722553 Problem Chest wall tenderness R07.89 Active 418827571 ALLERGIES Allergen (clinical drug ingredient) Drug/Non Drug Allergy do cumented on EMR Reaction Allergy Type Onset Date Status zolpidem Ambien([facility] Code:[address]-58) Confusion Drug Allergy Active ENCOUNTERS from 1960 to 2020-07-30 Encounter Location Date Provider Diagnosis [address] [address] Jul, Cassandra Rascon IMMUNIZATIONS No Information SOCIAL HISTORY Tobacco Use: Social History Observation Description Date Details (start date - stop date) Never Smoker Sex Assigned At : Social History Observation Description Sex Assigned At Unknown Audit Question Answer Notes Total Score: 0 Interpretation: Alcohol Education Language: Question Answer Notes Languages spoken: Brazilian Amish: Question Answer Notes Amish No scientologist beliefs that would impact health care. Sexual [...] Information RESULTS No Results REASON FOR VISIT covid result MEDICAL (GENERAL) HISTORY Type Description Date Medical History depression, Treated with zoloft W2W, Medical History Lipid panal performed 11/2014 - ASCVD-10 1.4%. 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
[2020-10-14] MEDS ORDERED: LR 1,000 ML IV ONE (07:00)
[2020-10-14] MEDS ORDERED: propofoL 200 MG/20 ML VIAL As Ordered ONE (07:11)
[2020-10-14] MEDS ORDERED: LIDOCAINE 2% 100MG/5ML SDV (FOR ANES.) As Ordered ONE (07:11)
[2020-10-14] MEDS ORDERED: METOCLOPRAMIDE INJ 10MG/2ML VIAL (J2765 PER 1) As Ordered ONE (07:12)
[2020-10-14] MEDS ORDERED: ONDANSETRON 4MG/2ML VIAL As Ordered ONE (07:12)
[2020-10-14] MEDS ORDERED: MIDAZOLAM INJ 2MG/2ML VIAL (J2250 PER 1MG) As Ordered ONE (07:12)
[2020-10-14] MEDS ORDERED: dexameTHASONE 4 MG/ML 1ML VIAL (J1100 PER 1MG) As Ordered ONE (07:12)
[2020-10-14] MEDS ORDERED: fentaNYL 100 MCG/2 ML INJECTION (J3010) As Ordered ONE (07:12)
[2020-10-14] MEDS ORDERED: KETOROLAC 60MG 2ML VIAL As Ordered ONE (08:26)
[2020-10-14] MEDS ORDERED: ACETAMINOPHEN 1000MG 100ML IV BTL (OFIRMEV) (J0131 PER 10MG) As Ordered ONE (08:28)
--- NOTE | 2020-10-14 08:56 | ROOPDOC ---
[facility] Report Of Operation Report of Operation DATE OF PROCEDURE: 10/14/20 PREPROCEDURE DIAGNOSES: Postmenopausal bleeding. POSTPROCEDURE DIAGNOSES: Same. PROCEDURE: Hysteroscopy, D&C. SURGEON: Olivia Olivares MD ANESTHESIA: Gen. via LMA. ESTIMATED BLOOD LOSS: Approximately 10 mL. COMPLICATIONS: None. FINDINGS: Large endometrial polyp attached at the fundus. Otherwise, normal- appearing endometrial cavity. PROCEDURE NOTE: Patient taken to the operating room where LMA anesthesia was induced. She was prepped draped sterile fashion in dorsal lithotomy position. A Speculum was placed in the vagina. The anterior lip of the cervix was grasped with tenaculum. Cervix dilated with tapered dilators. A diagnostic hysteroscope using normal saline as the distention media was inserted through the internal os. Visualization the endometrial cavity revealed findings noted above. Polyp forceps were used to grasp a large endometrial polyp. The polyp was removed in its entirety. Sharp curettage was performed. The hysteroscope was again inserted through the internal os. A normal endometrial cavity was observed. Good hemostasis was noted. All instruments removed. Sponges counts were correct. OLIVIA OLIVARES MD Oct 14, 2020 08:56
[2020-10-14] MEDS ORDERED: fentaNYL 100 MCG/2 ML INJECTION (J3010) IV PRN (09:00)
[2020-10-14] MEDS ORDERED: LR 1,000 ML IV SCH (09:00)
[2020-10-14] MEDS ORDERED: PERCOCET 5MG/325MG TAB PO PRN (09:00)
[2020-10-14] MEDS ORDERED: ACETAMINOPHEN 500 MG TAB PO ONE (09:00)
[2020-10-14] MEDS ORDERED: ONDANSETRON 4MG/2ML VIAL IV PRN (09:00)
[2020-10-14 10:45] VITALS: BP 126/60
== END 2020-10-14 10:58 | disposition home or self-care (01) ==
LOC: M SDC 06:06
PROVIDERS: ATTEND Specialist
DX: N84.0 Polyp of corpus uteri (principal); I10 Essential (primary) hypertension; E78.5 Hyperlipidemia, unspecified; Z79.899 Other long term (current) drug therapy; Z88.8 Allergy status to other drugs, medicaments and biological substances
CPT/HCPCS: 58558; 88305; J0131; J1100; J1885; J2250; J2405; J2765; J3010

== ENCOUNTER → 2020-11-12 | Outpatient (REF) | payer OTHER ==
[2020-11-12 17:56] LABS: BASO # 0.1 10^3/uL (0.0-0.2); BASO % 0.7 % (0.0-1.0); EOS # 0.3 10^3/uL (0.0-0.5); EOS % 2.7 % (0.0-3.0); HEMATOCRIT 46.4 % (36.0-47.0); HEMOGLOBIN 14.3 g/dl (12.0-15.5); LYMPH # 2.6 10^3/uL (1.5-5.0); LYMPH % 25.5 % (24.0-44.0); MEAN CORPUSCULAR HEMOGLOBIN 28.1 pg (27.0-33.0); MEAN CORPUSCULAR HGB CONC 30.8 g/dl (32.0-36.5); MEAN CORPUSCULAR VOLUME 91.2 fl (80.0-96.0); MONO % 10.2 % (2.0-8.0); NEUTROPHILS % 59.6 % (36.0-66.0); PLATELET COUNT, AUTOMATED 347 10^3/uL (150-450); RED BLOOD COUNT 5.09 10^6/uL (4.00-5.40); WHITE BLOOD COUNT 10.1 10^3/uL (4.0-10.0)
[2020-11-12 18:14] LABS: APPEARANCE, URINE CLEAR (CLEAR); BACTERIA, URINE AUTO NEGATIVE (NEGATIVE); BILIRUBIN, URINE AUTO NEGATIVE (NEGATIVE); BLOOD, URINE BLOOD NEGATIVE (NEGATIVE); COLOR, URINE YELLOW (YELLOW); GLUCOSE, URINE (UA) AUTO NEGATIVE (NEGATIVE); KETONE, URINE AUTO NEGATIVE (NEGATIVE); LEUKOCYTE ESTERASE, URINE AUTO NEGATIVE (NEGATIVE); NITRITE, URINE AUTO NEGATIVE (NEGATIVE); PROTEIN, URINE AUTO NEGATIVE (NEGATIVE); RBC, URINE AUTO 2 /HPF (0-3); SPECIFIC GRAVITY URINE AUTO 1.011 (1.002-1.035); SQUAMOUS EPITHELIAL CELL UR AU 2 /HPF (0-6); UROBILINOGEN, URINE AUTO 0.2 mg/dL (0.0-2.0); WBC, URINE AUTO 1 /HPF (0-3)
[2020-11-12 18:21] LABS: BLOOD UREA NITROGEN 17 MG/DL (7-18); CALCIUM LEVEL 8.8 MG/DL (8.8-10.2); CARBON DIOXIDE LEVEL 33 MEQ/L (21-32); CHLORIDE LEVEL 104 MEQ/L (98-107); CREATININE FOR GFR 0.62 MG/DL (0.55-1.30); CREATININE, URINE 44.8 MG/DL; GLOMERULAR FILTRATION RATE > 60.0 (>45); GLUCOSE, FASTING 112 MG/DL (70-100); MALB URINE SIEMENS 11.7 MG/L; MAU/CREAT RATIO 26.1 MCG/MG (0.0-30.0); POTASSIUM SERUM 4.5 MEQ/L (3.5-5.1); SODIUM LEVEL 139 MEQ/L (136-145); T UPTAKE 26 % (30-39); THYROXINE (T4) 7.8 UG/DL (4.5-12.0)
[2020-11-12 18:28] LABS: HEMOGLOBIN A1c 6.7 %
== END ==
LOC: M SFHCPLAZ 15:20
PROVIDERS: ATTEND Family Medicine
DX: R39.15 Urgency of urination (principal); R53.83 Other fatigue; E11.29 Type 2 diabetes mellitus with other diabetic kidney complication

== ENCOUNTER → 2020-11-29 | Outpatient (CLI) | payer OTHER ==
[~2020-11-29] MED LIST changes: +GASTROGRAFIN SOLUTION 30ML (Q9963) As Ordered ONE; +ISOVUE-370 76% 100ML VIAL As Ordered ONE
--- NOTE | 2020-11-30 20:25 | REP ---
INDICATION: URINARY URGENCY. COMPARISON: 04/19/2013 TECHNIQUE: Axial contrast-enhanced images from the lung bases to the pubic symphysis using 100 cc Isovue 370 intravenous contrast material. Coronal and sagittal reformations obtained. This CT examination was performed using the following dose reduction techniques: Automated exposure control, adjustment of mA and/or kv according to the patient's size, and the use of iterative reconstruction technique. FINDINGS: Liver demonstrates fatty infiltration without focal hepatic lesion. Spleen, pancreas, gallbladder, bilateral adrenal glands and kidneys are normal. The enteric system including stomach, small, and large bowel appears normal. No evidence for obstruction or acute inflammatory process. Normal terminal ileum and appendix are identified in the right lower quadrant. Few scattered sigmoid diverticula noted without acute diverticulitis. Pelvis demonstrates normal bladder and partially calcified myomatous changes to the uterus. No ascites. No free air. No intraperitoneal or retroperitoneal adenopathy. Abdominal aorta and vasculature appear normal. Musculoskeletal structures are intact and without acute osseous abnormality. IMPRESSION: 1. Normal appearance to the kidneys and bladder. 2. Heterogeneous partially calcified changes to the uterus likely representing underlying fibroids. 3. Scattered diverticula without acute diverticulitis. 4. Hepatosteatosis. <Electronically signed by Tariq Mccurdy > 11/30/202021
== END ==
LOC: M RAD 13:42
PROVIDERS: ATTEND Student in an Organized Health Care Education/Training Program
DX: K76.89 Other specified diseases of liver (principal); R39.15 Urgency of urination
CPT/HCPCS: 74177; Q9963; Q9967

== ENCOUNTER → 2020-12-23 | Outpatient (REF) | payer OTHER ==
[~2020-12-23] MED LIST changes: -GASTROGRAFIN SOLUTION 30ML (Q9963) As Ordered ONE; -ISOVUE-370 76% 100ML VIAL As Ordered ONE
[2020-12-23 14:49] LABS: CHOLESTEROL RISK RATIO 4.357 (<5)
== END ==
LOC: M SFHCPLAZ 10:32
PROVIDERS: ATTEND Family Medicine
DX: E78.5 Hyperlipidemia, unspecified (principal)

== ENCOUNTER → 2021-01-08 | Outpatient (CLI) | payer OTHER ==
--- NOTE | 2021-01-08 10:45 | REP ---
INDICATION: URINARY INCONTINENCE. COMPARISON: None. TECHNIQUE: Real-time sonographic evaluation of urinary bladder performed. FINDINGS: Bladder measures 7.5 x 6.8 x 4.6 cm for total volume of 153 cc. No bladder wall mass or thickening is seen. There is no intraluminal calculus. There are ureteral jets visualized bilaterally within the bladder lumen with Doppler color evaluation. Postvoid residual is 28 cc, 18% of the original volume. IMPRESSION: No bladder wall mass or thickening. No intraluminal calculus. Postvoid residual 18%. <Electronically signed by Go Leyva > 01/08/21 1046
== END ==
LOC: M RAD 09:30
PROVIDERS: ATTEND Student in an Organized Health Care Education/Training Program
DX: R32 Unspecified urinary incontinence (principal)

== ENCOUNTER → 2021-03-04 | Outpatient (REF) | payer OTHER | LOC: M SFHCWAGY 13:07 | PROVIDERS: ATTEND Specialist | DX: R39.15 Urgency of urination (principal) ==

== ENCOUNTER → 2021-11-20 | Outpatient (CLI) | payer OTHER ==
[~2021-11-20] MED LIST changes: +LOSA25TA13; -LOSA25TA14
[2021-11-20 17:32] LABS: FERRITIN 112 NG/ML (8-252); IRON (FE) 55 UG/DL (50-170); TOTAL IRON BINDING CAPACITY 305 UG/DL (250-450); TOTAL PROTEIN 6.8 GM/DL (6.4-8.2)
[2021-11-20 17:48] LABS: HEPATITIS B SURFACE ANTIGEN NEGATIVE (NEGATIVE)
[2021-11-20 18:15] LABS: HEPATITIS C VIRUS ABY INDEX 0.1 INDEX (<0.8)
[2021-11-20 23:41] LABS: HEPATITIS B CORE ANTIBODY IGM NEGATIVE (NEGATIVE)
[2021-11-21 12:55] LABS: ALBUMIN % 55.9 % (55.8-66.1)
[2021-11-21 12:56] LABS: ALPHA-1-GLOBULIN % 5.1 % (2.9-4.9); ALPHA-1-GLOBULINS 0.35 GM/DL (0.17-0.41); ALPHA-2-GLOBULINS 0.73 GM/DL (0.42-0.99); ALPHA-2-GLOBULINS % 10.7 % (7.1-11.8); BETA-1-GLOBULINS 0.49 GM/DL (0.28-0.60); BETA-1-GLOBULINS % 7.2 % (4.7-7.2); BETA-2-GLOBULINS 0.41 GM/DL (0.19-0.55); BETA-2-GLOBULINS % 6.1 % (3.2-6.5); GAMMA GLOBULINS 1.02 GM/DL (0.65-1.58)
== END ==
LOC: M PLALAB 14:47
PROVIDERS: ATTEND Student in an Organized Health Care Education/Training Program
DX: R74.8 Abnormal levels of other serum enzymes (principal)

== ENCOUNTER → 2022-01-29 | Outpatient (REF) | payer OTHER | LOC: M SFHCPLAZ 14:04 | PROVIDERS: ATTEND Family Medicine | DX: R74.8 Abnormal levels of other serum enzymes (principal) ==

== ENCOUNTER → 2022-01-30 | Outpatient (CLI) | payer OTHER ==
[2022-01-30 18:15] LABS: ALT/SGPT 31 IU/L (0-32); BLOOD UREA NITROGEN 13 MG/DL (7-18); CALCIUM LEVEL 8.6 MG/DL (8.8-10.2); CARBON DIOXIDE LEVEL 28 mmol/L (20-29); CHLORIDE LEVEL 106 MEQ/L (98-107); CREATININE FOR GFR 0.68 MG/DL (0.55-1.30); GLOMERULAR FILTRATION RATE > 60.0 (>45); GLUCOSE, FASTING 106 MG/DL (70-100); PHOSPHORUS LEVEL 3.4 MG/DL (2.5-4.9); SODIUM LEVEL 142 MEQ/L (136-145)
[2022-01-30 18:16] LABS: ALBUMIN 3.3 GM/DL (3.2-5.2); BILIRUBIN,TOTAL 0.2 MG/DL (0.2-1.0); THYROXINE (T4) 5.9 UG/DL (4.5-12.0); TOTAL PROTEIN 6.7 GM/DL (6.4-8.2)
[2022-01-30 18:34] LABS: PTH INTACT 68.1 PG/ML (18.5-88.0); TOTAL 25(OH) VITAMIN D 28.1 NG/ML (30.0-100.0)
[2022-01-30 19:01] LABS: % LABILE ALKALINE PHOSPHATASE 41.4 %
== END ==
LOC: M PLAIMG 15:09
PROVIDERS: ATTEND Student in an Organized Health Care Education/Training Program
DX: M25.561 Pain in right knee (principal); K76.0 Fatty (change of) liver, not elsewhere classified

== ENCOUNTER → 2022-02-18 | Outpatient (CLI) | payer OTHER | LOC: M RAD 07:15 | PROVIDERS: ATTEND Student in an Organized Health Care Education/Training Program | DX: K76.0 Fatty (change of) liver, not elsewhere classified (principal) ==

== ENCOUNTER → 2022-06-30 | Outpatient (CLI) | payer OTHER | LOC: M SOG 09:10 | PROVIDERS: ATTEND Orthopaedic Surgery Hand Surgery | DX: M25.532 Pain in left wrist (principal); M79.645 Pain in left finger(s) ==

== ENCOUNTER → 2022-06-30 | Outpatient (CLI) | payer OTHER ==
[2022-06-30 16:16] LABS: CHOLESTEROL RISK RATIO 3.38 (<5)
[2022-06-30 16:27] LABS: HEMOGLOBIN A1c 6.7 %
[2022-06-30 17:14] LABS: TOTAL 25(OH) VITAMIN D 40.7 NG/ML (30.0-100.0)
== END ==
LOC: M PLALAB 12:17
PROVIDERS: ATTEND Student in an Organized Health Care Education/Training Program
DX: E78.5 Hyperlipidemia, unspecified (principal)

== ENCOUNTER → 2022-09-03 | Outpatient (CLI) | payer OTHER ==
[2022-09-03 18:31] LABS: BASO # 0.1 10^3/uL (0.0-0.2); BASO % 0.7 % (0.0-1.0); EOS # 0.2 10^3/uL (0.0-0.5); EOS % 2.1 % (0.0-3.0); HEMATOCRIT 46.9 % (36.0-47.0); HEMOGLOBIN 14.2 g/dl (12.0-15.5); LYMPH # 2.8 10^3/uL (1.5-5.0); LYMPH % 25.8 % (24.0-44.0); MEAN CORPUSCULAR HEMOGLOBIN 27.3 pg (27.0-33.0); MEAN CORPUSCULAR HGB CONC 30.3 g/dl (32.0-36.5); MEAN CORPUSCULAR VOLUME 90.2 fl (80.0-96.0); MONO # 0.8 10^3/uL (0.0-0.8); MONO % 7.3 % (2.0-8.0); NEUTROPHILS # 6.8 10^3/uL (1.5-8.5); NEUTROPHILS % 63.1 % (36.0-66.0); PLATELET COUNT, AUTOMATED 370 10^3/uL (150-450); WHITE BLOOD COUNT 10.7 10^3/uL (4.0-10.0)
[2022-09-03 18:37] LABS: ALBUMIN 3.7 G/DL (3.2-5.2); ALKALINE PHOSPHATASE 125 U/L (46-116); ALT/SGPT 20 U/L (7.0-40); AST/SGOT 19 U/L (<34); BILIRUBIN,TOTAL 0.5 MG/DL (0.3-1.2); BLOOD UREA NITROGEN 15 MG/DL (9-23); CALCIUM LEVEL 9.1 MG/DL (8.3-10.6); CARBON DIOXIDE LEVEL 27 MMOL/L (20-31); CHLORIDE LEVEL 103 MMOL/L (98-107); CREATININE FOR GFR 0.54 MG/DL (0.55-1.30); GLOMERULAR FILTRATION RATE > 60.0 (>45); GLUCOSE, FASTING 90 MG/DL (74-106); POTASSIUM SERUM 3.9 MMOL/L (3.5-5.1); SODIUM LEVEL 141 MMOL/L (136-145); TOTAL PROTEIN 6.9 G/DL (5.7-8.2)
== END ==
LOC: M PLALAB 14:55
PROVIDERS: ATTEND Student in an Organized Health Care Education/Training Program
DX: E11.9 Type 2 diabetes mellitus without complications (principal); R06.2 Wheezing; M25.561 Pain in right knee

== ENCOUNTER 2022-10-08 17:29 | Emergency (ER) | payer OTHER ==
[~2022-10-08] VITALS: Ht 162.6 cm; Wt 95.7 kg
[2022-10-08 19:36] VITALS: BP 133/74
[2022-10-08] MEDS ORDERED: MAGIC MOUTHWASH *ED ONLY* 5ML ORAL SYRINGE SS ONE (19:55)
[2022-10-08] MEDS ORDERED: MUCI1TAB16 PO (20:29)
[2022-10-08] MEDS ORDERED: LIDO2SOL17 PO (20:29)
== END 2022-10-08 20:42 | disposition home or self-care (01) ==
LOC: M ED 17:29
DX: J02.9 Acute pharyngitis, unspecified (principal); I10 Essential (primary) hypertension; Z88.8 Allergy status to other drugs, medicaments and biological substances; R05.9 Cough, unspecified; Z79.899 Other long term (current) drug therapy

== ENCOUNTER → 2022-10-21 | Outpatient (CLI) | payer OTHER ==
[~2022-10-21] MED LIST changes: +LIDO15SO4 PO; +MUCI1TAB16 PO
== END ==
LOC: M WHC 10:51
PROVIDERS: ATTEND Specialist
DX: Z01.419 Encounter for gynecological examination (general) (routine) without abnormal findings (principal); Z12.31 Encounter for screening mammogram for malignant neoplasm of breast

== ENCOUNTER → 2023-11-08 | Outpatient (REF) | payer OTHER ==
[~2023-11-08] MED LIST changes: +LIDO15SO PO; -LIDO15SO4 PO
== END ==
LOC: M SFHCWAGY 17:24
PROVIDERS: ATTEND Nurse Practitioner Family
DX: N73.9 Female pelvic inflammatory disease, unspecified (principal); R35.0 Frequency of micturition

== ENCOUNTER → 2023-11-17 | Outpatient (CLI) | payer OTHER ==
[~2023-11-17] MED LIST changes: -LIDO15SO PO; +LIDO15SO8 PO
== END ==
LOC: M WHC 15:01
PROVIDERS: ATTEND Nurse Practitioner Family
DX: Z12.31 Encounter for screening mammogram for malignant neoplasm of breast (principal)

== ENCOUNTER → 2023-12-31 | Day surgery (SDC) | payer OTHER ==
[~2023-12-31] VITALS: Ht 162.6 cm; Wt 97.4 kg
[~2023-12-31] MED LIST changes: +SERT-141 PO; +propofoL 200 MG/20 ML VIAL As Ordered ONE
[2023-12-31] MEDS: NS 1,000 ML IV ONE (11:13)
[2023-12-31 12:34] VITALS: TEMP 97.5
[2023-12-31 13:01] VITALS: BP 188/92; O2SAT 97
== END | disposition home or self-care (01) ==
LOC: M OPP 10:26
PROVIDERS: ATTEND Surgery
DX: Z12.11 Encounter for screening for malignant neoplasm of colon (principal); K64.9 Unspecified hemorrhoids; K57.30 Diverticulosis of large intestine without perforation or abscess without bleeding; G47.30 Sleep apnea, unspecified; I10 Essential (primary) hypertension; Z79.899 Other long term (current) drug therapy; Z88.8 Allergy status to other drugs, medicaments and biological substances

== ENCOUNTER → 2024-11-21 | Outpatient (CLI) | payer OTHER ==
[~2024-11-21] MED LIST changes: -propofoL 200 MG/20 ML VIAL As Ordered ONE
== END ==
LOC: M WHC 08:56
PROVIDERS: ATTEND Nurse Practitioner Family
DX: Z12.31 Encounter for screening mammogram for malignant neoplasm of breast (principal)

== ENCOUNTER → 2024-11-21 | Outpatient (REF) | payer OTHER | LOC: M SFHCWAGY 12:52 | PROVIDERS: ATTEND Nurse Practitioner Family | DX: R39.15 Urgency of urination (principal); Z12.4 Encounter for screening for malignant neoplasm of cervix; Z11.51 Encounter for screening for human papillomavirus (HPV) ==

== ENCOUNTER → 2024-11-21 | Outpatient (CLI) | payer OTHER ==
[2024-11-21 15:16] LABS: BASO # 0.1 10^3/uL (0.0-0.2); BASO % 0.6 % (0.0-1.0); EOS # 0.2 10^3/uL (0.0-0.5); EOS % 2.7 % (0.0-3.0); HEMATOCRIT 46.5 % (36.0-47.0); HEMOGLOBIN 14.5 g/dl (12.0-15.5); LYMPH # 2.3 10^3/uL (1.5-5.0); LYMPH % 26.4 % (24.0-44.0); MEAN CORPUSCULAR HEMOGLOBIN 27.9 pg (27.0-33.0); MEAN CORPUSCULAR HGB CONC 31.2 g/dl (32.0-36.5); MEAN CORPUSCULAR VOLUME 89.6 fl (80.0-96.0); MONO # 0.8 10^3/uL (0.0-0.8); MONO % 9.1 % (2.0-8.0); NEUTROPHILS # 5.2 10^3/uL (1.5-8.5); NEUTROPHILS % 60.4 % (36.0-66.0); PLATELET COUNT, AUTOMATED 356 10^3/uL (150-450); RED BLOOD COUNT 5.19 10^6/uL (4.00-5.40); WHITE BLOOD COUNT 8.7 10^3/uL (4.0-10.0)
[2024-11-21 15:19] LABS: ALBUMIN 3.6 G/DL (3.2-5.2); ALKALINE PHOSPHATASE 137 U/L (35-104); ALT/SGPT 20 U/L (7.0-40); AST/SGOT 17 U/L (<34); BILIRUBIN,TOTAL 0.5 MG/DL (0.3-1.2); BLOOD UREA NITROGEN 13 MG/DL (9-23); CALCIUM LEVEL 9.3 MG/DL (8.3-10.6); CARBON DIOXIDE LEVEL 31 MMOL/L (20-31); CHLORIDE LEVEL 105 MMOL/L (98-107); CHOLESTEROL LEVEL 233 MG/DL (<200); CHOLESTEROL RISK RATIO 3.85 (<5); CREATININE FOR GFR 0.61 MG/DL (0.55-1.30); GLOMERULAR FILTRATION RATE > 60.0 (>45); GLUCOSE, FASTING 137 MG/DL (74-106); HDL CHOLESTEROL 60.5 MG/DL (>40); LDL CHOLESTEROL 148.1 MG/DL (<100); NON-HDL-C 172.5 MG/DL; POTASSIUM SERUM 4.6 MMOL/L (3.5-5.1); SODIUM LEVEL 142 MMOL/L (136-145); TOTAL PROTEIN 7.2 G/DL (5.7-8.2); TRIGLYCERIDES LEVEL 122 MG/DL (<150)
[2024-11-21 15:21] LABS: THYROID STIMULATING HORMONE 2.289 uIU/ML (0.55-4.78); TOTAL 25(OH) VITAMIN D 36.5 NG/ML (20.0-100.0)
[2024-11-21 15:22] LABS: FREE T4 0.85 NG/DL (0.89-1.76)
[2024-11-21 15:28] LABS: HEMOGLOBIN A1c 6.9 % (4.0-6.0)
== END ==
LOC: M PLALAB 10:27
PROVIDERS: ATTEND Student in an Organized Health Care Education/Training Program
DX: Z00.00 Encounter for general adult medical examination without abnormal findings (principal)

== ENCOUNTER → 2024-12-19 | Outpatient (REF) | payer OTHER | LOC: M SFHCWAGY 17:07 | PROVIDERS: ATTEND Nurse Practitioner Family | DX: R35.0 Frequency of micturition (principal) ==

== ENCOUNTER → 2025-08-03 | Outpatient (REF) | payer OTHER | LOC: M LAB REF 12:40 | PROVIDERS: ATTEND Ophthalmology | DX: H02.87 Vascular anomalies of eyelid (principal) ==

== ENCOUNTER → 2025-08-29 | Outpatient (REF) | payer OTHER, MEDICARE ==
[2025-08-29 17:58] LABS: APPEARANCE, URINE HAZY (CLEAR); BACTERIA, URINE AUTO NEGATIVE (NEGATIVE); BILIRUBIN, URINE AUTO NEGATIVE (NEGATIVE); BLOOD, URINE BLOOD 2+ (NEGATIVE); GLUCOSE, URINE (UA) AUTO NEGATIVE (NEGATIVE); KETONE, URINE AUTO NEGATIVE (NEGATIVE); LEUKOCYTE ESTERASE, URINE AUTO TRACE (NEGATIVE); NITRITE, URINE AUTO NEGATIVE (NEGATIVE); PROTEIN, URINE AUTO NEGATIVE (NEGATIVE); RBC, URINE AUTO 1 /HPF (0-3); SPECIFIC GRAVITY URINE AUTO 1.020 (1.002-1.035); SQUAMOUS EPITHELIAL CELL UR AU 3 /HPF (0-6); UROBILINOGEN, URINE AUTO 0.2 mg/dL (0.0-2.0); WBC, URINE AUTO 6 /HPF (0-3)
== END ==
LOC: M SFHCPLAZ 17:03
PROVIDERS: ATTEND Family Medicine
DX: R39.9 Unspecified symptoms and signs involving the genitourinary system (principal)